=== PATIENT | male | born 1935 | race Caucasian/White ===

== ENCOUNTER → 2018-04-07 11:42 | Outpatient (CLI) | payer MEDICARE, SELFPAY | PROVIDERS: Family Provider Family Medicine; PCP Family Medicine; Visit Provider Urology | DX: C61 Malignant neoplasm of prostate (principal) | CPT/HCPCS: 36415; 84153 ==

== ENCOUNTER → 2018-04-09 10:28 | Outpatient (CLI) | payer MEDICARE, SELFPAY | PROVIDERS: Family Provider Family Medicine; PCP Family Medicine; Visit Provider Urology | DX: Z85.46 Personal history of malignant neoplasm of prostate (principal) | CPT/HCPCS: 78306 ==

== ENCOUNTER 2018-06-20 10:58 | Emergency (ER) | payer MEDICARE, SELFPAY ==
[2018-06-20 10:59] VITALS: BP 200/79; PULSE 105; RESP 17; TEMP 36.8; O2SAT 98; BMI 25.5
[2018-06-20 11:47] LABS: Bacteria 0 SEEN /hpf (None Seen); Mucous, Urine 0 SEEN /hpf (<or=2+); Squamous Epithelial Cells - UA 0 SEEN /hpf (0-5); White Blood Cells 0 SEEN /hpf (0-5)
[2018-06-20 11:52] LABS: Color, Urine Yellow (Yellow); Glucose, Dipstick Normal (Normal); Ketone-Dipstick Negative (Negative); Leukocyte Esterase-Dipstick Negative /ul (Negative); Nitrite-Dipstick Negative (Negative); Occult Blood-Urine 50 /ul (Negative); Protein-Dipstick 30 mg/dl (Negative); Urine Bilirubin Dipstick Negative (Negative); Urine Clarity Clear (Clear); Urine Urobilinogen Normal (Normal)
[2018-06-20 12:00] LABS: Red Blood Cells-Urine 0-5 SEEN /hpf (0-5)
--- NOTE | 2018-06-20 12:17 | ED.DCSUM_ITS ---
- ER Visit Summary Date of Service: 06/20/18 Chief Complaint: Urinary retention History of Present Illness: The patient is a 83 M with urinary retention. He has a history of prostate cancer. He feels quite a bit of suprapubic pain. I saw the patient after So was inserted by nurse and now he is asymptomatic and he feels much relieved so far he has had 900 mL's of clear urine out. He has no fever chills or any other current concerns. Physical Examination: Not appear in acute distress. Moist mucous membranes, no obvious facial deformity No C-spine tenderness supple neck. Regular rate and rhythm without any obvious murmurs Clear lungs bilaterally speaking in full sentences without any obvious respiratory distress Abdomen soft and nontender no guarding or rebound Normal external genitalia Moves all extremities without any difficulty or pain. Skin does not show any obvious rashes or lesions, no trauma. Alert oriented ?3 with no gross focal deficit Emergency Department Course and Treatment: Patient has an unremarkable urinalysis, he feels comfortable and no longer in pain. I will discharge him with a leg bag to follow-up with his urologist in the next 3-4 days. Discharge stable and improved condition Impression: Urinary retention This note was generated with [employer] dictation software. It may contain incorrect words, spelling, and punctuation that were not noted in review of the chart prior to signing ED Disposition - Plan for ED Patient: Disposition: Home or Assisted Living Chief Complaint: Complaint Instructions: ED Retention Urinary Male Referrals: Silvano Loyd MD [STAFF PHYSICIAN] - 3-5 Days
[2018-06-20 12:47] VITALS: BP 123/78; PULSE 108; RESP 14; O2SAT 95
== END 2018-06-20 12:49 | disposition home or self-care (01) ==
PROVIDERS: Emergency Provider Emergency Medicine; Family Provider Family Medicine; PCP Family Medicine
DX: R33.9 Retention of urine, unspecified (principal); R10.9 Unspecified abdominal pain; Z85.46 Personal history of malignant neoplasm of prostate
CPT/HCPCS: 51702; 81001; 99283

== ENCOUNTER 2018-07-17 09:55 | Day surgery (SDC) | payer MEDICARE, SELFPAY ==
[2018-07-10 14:17] VITALS: BP 147/83; PULSE 77; RESP 17; TEMP 37.2; O2SAT 97; BMI 24.9
--- NOTE | 2018-07-10 14:48 | SDCEKG_ITS ---
Test Reason : Blood Pressure : / mmHG Vent. Rate : 076 BPM Atrial Rate : 076 BPM P-R Int : 178 ms QRS Dur : 132 ms QT Int : 380 ms P-R-T Axes : 040 099 024 degrees QTc Int : 427 ms Normal sinus rhythm Right bundle branch block Abnormal ECG Confirmed by NISHI PEDROZA, JOANN ([id number]), senior editor ANTONIETA REDE ([id number]) on 07/13/2018 2:26:18 PM Referred By: Silvano Loyd Confirmed By:JOANN ALMODOVAR MD
[2018-07-10 16:34] LABS: Absolute Lymphocyte Count 1.97 X10^3/ul (0.83-4.51); Absolute Neutrophil Count 12.5 X10^3/uL (2.0-7.7); Basophil# 0.09 X10^3/uL; Basophil% 0.5 % (0-1); Eosinophil# 0.61 X10^3/uL; Eosinophils% 3.7 % (0-5); Hematocrit 48.5 % (40-54); Hemoglobin 13.3 g/dl (13.0-16.5); Lymphocyte # 1.97 X10^3/ul (4.0); Lymphocyte % 11.8 % (19-41); Mean Corp Hgb Conc 27.4 g/gl (32-36); Mean Corpuscular Hgb 18.8 pg (27.0-32.0); Mean Corpuscular Volume 68.4 fL (80-94); Mean Platelet Vol. 10.1 fl (6.2-12.0); Neutrophil # 12.45 X10^3/uL (2.7-7.7); Neutrophil % 74.8 % (47-70); Platelet Count 611 K/mm3 (150-450); RBC Distribution Width CV 21.2 % (11.6-14.6); RBC Distribution Width SD 50.4 fl (35.1-43.9); White Blood Count 16.7 K/mm3 (4.4-11.0)
[2018-07-10 17:02] LABS: POSITIVE COUNT NO; POSITIVE DIFFERENTIAL NO; POSITIVE MORPHOLOGY YES; Red Blood Count 7.09 M/mm3 (4.6-6.2)
[2018-07-10 17:05] LABS: Differential Indicated SCAN CRITERIA MET
[2018-07-10 17:06] LABS: Anisocytosis 2+; Hypochromasia 4+; Platelet Estimate MKD INC (ADEQ); Stomatocyte 1+
[2018-07-10 17:07] LABS: Target Cells RARE
[2018-07-14 10:48] LABS: Pathologist Review Reviewed
[2018-07-17] VITALS (11 sets, daily range): BP systolic 104–151; BP diastolic 52–83; PULSE 71–97; RESP 16–18; TEMP 36.1–36.9; O2SAT 93–97; BMI 24.9
--- NOTE | 2018-07-17 | IMM_PTH ---
PATIENT: ZULEIMA [place]CE [place] [facility] [id number] AGE/SX: 83/M ROOM: RE07/17/[address]: Dr. Silvano Loyd MD : 1935 BED: DIS: 07/18/2018 SPEC #: [id number] RECD: 07/21/18 13:37 STATUS: RENUKA REQ #: [id number] WILLARD: 07/17/18 00:[address]: Silvano Loyd DEPT: IMMUNOHISTOCHEMISTRY RECD BY: Melissa Breen ENTERED: 07/21/18 13:39 SP TYPE: IMMUNO OTHR DR: Dr. Valentino Barroso, DO Tissues: Prostate, NOS Procedures: CK14 (add) P53 (add) 34BE12 (add) P40 (add) CD44 (add) PSAP (add) CK7 (initial) PHYSICIAN & INSTITUTION [facility] [phone] SPECIMEN INFORMATION: Tissue Source: Prostate tissue Clinical Info: Obstruction, BPH, prostate cancer Specimen Number: [id number] #1 CPT code: 41266, 68870 x6 METHODOLOGY: Deparaffinized sections of prefer/formalin-fixed tissue or PAP/DQ stained slides are incubated with monoclonal/polyclonal antibodies/oligonucleotide probes. Localization is made via biotin free immunoperoxidase method. Appropriate controls are performed and reacted as expected. Results on target cell population are indicated in the following table: RESULTS: ANTIBODY / CLONE RESULT Block 1 PSAP (PASE/4LJ) positive CK7 (OV-TL12/30) negative CK14 (LL002) negative anti-CD44 (SP37) negative 34BE12 (34BE12) negative P40 (BC28) negative P53 (DO-7) positive 10% These tests were developed and their performance characteristics determined by [facility]. They may not have been cleared or approved by the U.S. Food and Drug Administration. The FDA has determined that such clearance or approval is not necessary. INTERPRETATION: Prostate tissue, TUR: Adenocarcinoma. AM:ginger 07/22/18 Comment: The carcinoma is consistent with prostatic origin.
--- NOTE | 2018-07-17 11:25 | PROS_PTH ---
PATIENT: ZULEIMA [place]CE [place] [facility] [id number] AGE/SX: 83/M ROOM: RE07/17/[address]: Dr. Silvano Loyd MD : 1935 BED: DIS: 07/18/2018 SPEC #: [id number] RECD: 07/17/18 15:10 STATUS: RENUKA REKimo #: [id number] WILLARD: 07/17/18 11:[address]: Silvano Loyd DEPT: SURGICAL PATHOLOGY RECD BY: Sharon Collado ENTERED: 07/20/18 09:31 SP TYPE: TURP OTHR DR: Dr. Valentino Barroso, DO Tissues: Prostate, NOS Procedures: Surgery Specimen Level IV HEADER OPERATION: Cysto, TUR, prostate, Olympus PRE-OP DIAGNOSIS: Obstruction, BPH with prostate cancer TISSUE SUBMITTED: Prostate tissue MICROSCOPIC DIAGNOSIS Prostate, transurethral resection: Adenocarcinoma, Cassidy grade 8 (4+4). AM:ginger 07/21/18 COMMENT Virtually every fragment cubmitted contains high-grade prostatic adenocrcinoma. Immunohistochemistry ([id number]) supports the above diagnosis. Clinical correlation is suggested. Case has been reviewed in consultation with Dr. Dyer who concurs with the above diagnosis. IDC:[email or web address] MICROSCOPIC DESCRIPTION Slides are reviewed. GROSS DESCRIPTION Received is one container labeled with the patient's name and designated prostate tissue. The specimen consists of multiple irregular fragments of pink-hazel, rubbery, soft tissue that in aggregate weigh 3.8 gm and measure in aggregate 3 x 3 x 1 cm. The entire specimen is submitted in three cassettes. / NANCI:ginger 07/20/18 TC:0 CPT: 43857
[2018-07-17] MEDS: Cefazolin 2 GM in 0.9% Normal Saline 100 ML IV (11:28)
--- NOTE | 2018-07-17 11:39 | DCINST_ITS ---
Discharge Diet: No Restrictions, Light diet - advance as tolerated Discharge Activity: Return to Normal Activity, May Not Drive - for 2 days., May not drive while taking narcotic pain medications. Additional Activity Instructions:: Please be aware that pain medications may cause nausea. You should typically eat light foods as you take your pain medication. Pain medication may cause constipation, if this is a problem for you, please discuss with your doctor. Call your doctor if your incision/area has: Continuous Slow Oozing, Sudden Increased Bleeding, Increased Pain/ Swelling, Increased Redness, Foul Smelling Discharge, Swelling at the incision site Suture Line Care: Avoid Pulling/Pushing, Avoid Pinching/Bending Instructions: Transurethral Resection of the Prostate (TURP): Home Recovery Allergies/Adverse Reactions: Allergies No Known Allergies Allergy (Verified 07/10/18 14:15) Medications to take at Discharge Lisinopril [Zestril] 40 mg PO DAILY 07/26/14 Tamsulosin HCl [Flomax] 1 tab PO QHS 10/11/15 Aspirin [Aspirin EC] 325 mg PO DAILY 03/26/17 Acetaminophen [Tylenol Extra Strength] 500 mg PO Q6H PRN PRN #20 tablet 07/17/18 Ciprofloxacin [Cipro] 500 mg PO BID #14 tablet 07/17/18 Ibuprofen [Motrin] 600 mg PO Q6H PRN PRN #20 tablet 07/17/18 The following prescriptions were given: Acetaminophen [Tylenol Extra Strength] 500 mg PO Q6H PRN PRN #20 tablet PRN Reason: Pain Ibuprofen [Motrin] 600 mg PO Q6H PRN PRN #20 tablet PRN Reason: Pain Ciprofloxacin [Cipro] 500 mg PO BID #14 tablet Primary Care Physician: Valentino Barroso DO [Primary Care Provider] - Test Results: Test results from this visit will be discussed in further detail at your follow- up appointment, if applicable. Please Follow Up With: Silvano Loyd MD When: in 2 weeks, please call to make an appointment. Proposed Discharge Date: 07/18/18
--- NOTE | 2018-07-17 11:58 | OP.PCM_ITS ---
Report of Operation Date of Procedure: 07/17/18 Pre-Operative Diagnosis: BPH with obstruction urinary retention and history of prostate cancer Post-Operative Diagnosis: Same Surgery/Procedure Performed:: Cystoscopy and transurethral resection of the prostate Description of Surgical Findings:: 83-year-old male with history of prostate cancer presented to the emergency with retention of urine, plan to proceed with resection of the prostate to the alleviate the retention, we talked about the risk of the surgery including the risk of anesthesia, risk of bleeding, scar tissue formation, incontinence. Patient was taken back to the operating room at the smooth induction of general anesthesia he is placed supine on the table the penis testicles are prepped and draped in usual sterile fashion, went to the bladder with a 26 [place] continuous flow resectoscope, is a 12 degree lens, on inspection he had a short length prostate minimal obstruction but it was obstructive prostate bladder was smoothed out no trabeculation no tumors or stones within the bladder I then switched over the large loop and resected the floor of the prostate right lobe of the prostate level of the prostate note apical tissue to resect and no roof had a nice open channel did a flow test get a good flow, cauterized the resection site really well until hemostasis was obtained and place a catheter on three-way irrigation and patient anesthetic is being reversed. Type of Anesthesia:: General Drains: 3 way wolf - Admit VTE Documentation VTE Present on Admission: No VTE Mechan Device Prophylaxis: SCD's
--- NOTE | 2018-07-17 14:03 | NURSING ---
continuous spo2 applied per policy for + stop score.
[2018-07-17] MEDS: 0.9% Normal Saline 1,000 ML 75 ML IV (14:23)
[2018-07-17] MEDS: Docusate Sodium 100 MG Capsule PO (22:02)
[2018-07-17] MEDS: Ibuprofen 600 MG Tablet PO (22:02)
[2018-07-17] MEDS: Ciprofloxacin 500 MG Tablet PO (22:02)
[2018-07-18 02:30] VITALS: BP 107/55; PULSE 65; RESP 16; TEMP 36.8; O2SAT 98
--- NOTE | 2018-07-18 02:49 | NURSING ---
2L O2 NASAL CANULA APPLIED TO PT D/T SPO2 OF 79%. PT DENIES SOB, PT APPEARS TO NOT BE IN DISTRESS. VITALS WNL
[2018-07-18] MEDS: 0.9% Normal Saline 1,000 ML 75 ML IV (03:16)
[2018-07-18 07:40] VITALS: O2SAT 96
[2018-07-18 08:22] VITALS: BP 116/63; PULSE 77; RESP 18; TEMP 36.6; O2SAT 94
[2018-07-18] MEDS: Docusate Sodium 100 MG Capsule PO (08:25)
[2018-07-18] MEDS: Pantoprazole Sodium 40 MG Tablet PO (08:25)
[2018-07-18] MEDS: Ciprofloxacin 500 MG Tablet PO (09:39)
[2018-07-18] MEDS: oxyCODONE 5 MG Tablet PO (10:46)
[2018-07-18] MEDS: Ibuprofen 600 MG Tablet PO (10:47)
--- NOTE | 2018-07-18 12:05 | NURSING ---
Paged Dr. Loyd about plan for pt. Gave orders to remove wolf and if pt can void a good amount on own, he can then be discharged home. He will not be coming in to see pt unless there are complications. Went in to discuss plan with pt. pt c/o of burning and lots of pain/pressure. Irrigated wolf with 30ml sterile water. Numerous clots removed and bladder emptied 650ml clear yellow urine immediately. Dr. Loyd paged and notified of findings. no further clots noted when irrigated the second and third time and no blood noted in urine. Dr. Loyd said to remove wolf and if pt can void on own he can be discharged home. If not, call him for further orders.
[2018-07-18 14:24] VITALS: BP 135/78; PULSE 76; RESP 18; TEMP 36.6; O2SAT 97
== END 2018-07-18 14:35 | disposition home or self-care (01) ==
LOC: SDC 09:56 → AC 09:57 → MS2 07-20 07:40
PROVIDERS: Anesthesiology; Family Provider Family Medicine; PCP Family Medicine; Referring Provider Urology; Visit Provider Urology
PROC: (CPT 52630; principal; 2018-07-17 11:15)
DX: C61 Malignant neoplasm of prostate (principal); N40.1 Benign prostatic hyperplasia with lower urinary tract symptoms; R33.9 Retention of urine, unspecified; D45 Polycythemia vera; I10 Essential (primary) hypertension; Z85.46 Personal history of malignant neoplasm of prostate
CPT/HCPCS: 52630; 85025; 88305; 88341; 88342; 93005; 94762; J7030; J7120; J2405

== ENCOUNTER → 2019-10-07 | Outpatient (CLI) | payer MEDICARE, SELFPAY ==
[2019-09-07 14:39] VITALS: BMI 27.3
[2019-10-07 12:32] LABS: Absolute Lymphocyte Count 2.53 X10^3/uL (0.83-4.51); Absolute Neutrophil Count 13.4 X10^3/uL (2.0-7.7); Basophil# 0.18 X10^3/uL; Eosinophil# 0.42 X10^3/uL; Eosinophils% 2.4 % (0-5); Hemoglobin 14.7 g/dL (13.0-16.5); Lymphocyte # 2.53 X10^3/ul (4.0); Lymphocyte % 14.2 % (19-41); Mean Corp Hgb Conc 26.4 g/dL (32-36); Mean Corpuscular Hgb 20.2 pg (27.0-32.0); Mean Corpuscular Volume 76.5 fL (80-94); Mean Platelet Vol. 9.5 fl (6.2-12.0); Monocyte# 1.16 X10^3/uL; Monocyte% 6.5 % (0-10); NRBC Flagged by Analyzer 0 % (0-5); Neutrophil # 13.35 X10^3/uL (2.7-7.7); Neutrophil % 75.2 % (47-70); POSITIVE MORPHOLOGY YES; Platelet Count 428 K/mm3 (150-450); RBC Distribution Width SD 64.6 fl (35.1-43.9); Red Blood Count 7.28 M/mm3 (4.6-6.2); White Blood Count 17.8 K/mm3 (4.4-11.0)
[2019-10-07 12:40] LABS: Hematocrit 55.7 % (40-54)
[2019-10-07 12:41] LABS: Differential Indicated SCAN CRITERIA MET
[2019-10-07 12:55] LABS: Anisocytosis 2+; Differential Comment SCANNED; Hypochromasia 1+; Macrocytosis 1+; Microcytosis 1+
[2019-10-07 13:06] LABS: ALB/GLOB Ratio 0.9 RATIO (0.9-2.4); AST(SGOT) 21 U/L (15-37); Alanine Aminotransfer ALT/SGPT 16 U/L (16-61); Albumin, Serum 3.6 g/dL (3.2-5.0); Alkaline Phosphatase 97 U/L (45-117); Anion Gap 4 (5-15); BUN 21 mg/dL (7-18); BUN/Creat Ratio 16.9 RATIO (10-20); Chloride 108 mmol/L (98-107); Creatinine, Serum 1.24 mg/dL (0.70-1.30); EST Glomerular Filtration Rate 59 mL/min (>60); Est Glom Filt Rate - Afr Amer 71 mL/min (>60); Globulin 3.8 g/dL (2.2-4.2); Glucose 83 mg/dL (74-106); LDH 254 U/L (87-241); Potassium 4.4 mmol/L (3.5-5.1); Protein, Total 7.4 g/dL (6.4-8.2); Sodium Level 140 mmol/L (136-145)
[2019-10-08 09:39] LABS: PSA,Total- Diagnostic 1.15 ng/mL (0.0-4.0)
== END | disposition home or self-care (01) ==
LOC: LAB 11:54
PROVIDERS: Internal Medicine Medical Oncology; PCP Family Medicine; Referring Provider Urology; Visit Provider Urology
DX: C61 Malignant neoplasm of prostate (principal); D45 Polycythemia vera
CPT/HCPCS: 36415; 80053; 83615; 84153; 85025; G0103

== ENCOUNTER → 2020-08-14 13:06 | Outpatient (CLI) | payer MEDICARE, SELFPAY ==
[2020-06-27 15:41] VITALS: BMI 24.3
[2020-08-14 15:10] LABS: PSA,Total- Diagnostic 3.14 ng/mL (0.0-4.0)
== END ==
PROVIDERS: PCP Family Medicine; Referring Provider Internal Medicine Medical Oncology; Visit Provider Internal Medicine Medical Oncology
DX: C61 Malignant neoplasm of prostate (principal)
CPT/HCPCS: 36415; 84153

== ENCOUNTER → 2020-11-20 13:46 | Outpatient (CLI) | payer MEDICARE, SELFPAY ==
[2020-10-16 14:37] VITALS: BMI 24.5
[2020-11-20 14:27] LABS: PSA,Total- Diagnostic 3.39 ng/mL (0.0-4.0)
== END ==
PROVIDERS: PCP Family Medicine; Referring Provider Urology; Visit Provider Urology
DX: C61 Malignant neoplasm of prostate (principal)
CPT/HCPCS: 36415; 84153

== ENCOUNTER → 2020-12-29 13:52 | Outpatient (CLI) | payer MEDICARE, SELFPAY ==
[2020-12-20 12:35] VITALS: BMI 24.1
--- NOTE | 2020-12-29 13:57 | ECHOD_ITS ---
Reason For Study: HTN Procedure This was a 2D Doppler, Color Flow transthoracic echocardiogram. Exam performed in department. Left Ventricle Normal LV size. Left ventricular systolic function is normal. The estimated ejection fraction is 65 %. No regional wall motion abnormalities noted. Right Ventricle Normal RV size. Normal systolic function. Atria Normal left atrium. Normal right atrium. Mitral Valve Mild focal mitral valve calcification. Tricuspid Valve Normal tricuspid valve. Mild tricuspid valve insufficiency. Aortic Valve Trisinus/trileaflet aortic valve. Mild focal aortic valve calcification. Mild (1+) aortic valve insufficiency. Pulmonic Valve Normal pulmonic valve. Great Vessels Normal aortic root. The pulmonary artery is normal size. Normal inferior vena cava. Pericardium/Pleural No pericardial effusion. MMode/2D Measurements & Calculations LVIDd: 3.3 cm IVSd: 1.2 cm Ao root diam: 2.6 cm LVIDs: 1.6 cm LVPWd: 0.90 cm RVDd: 3.8 cm FS: 50.9 % LAV(MOD-bp): 20.1 ml LVAd ap4: 24.0 cm2 SV(MOD-sp4): 45.4 ml LAV(MOD-bp) Indexed: 14.0 ml/m2 LVLd ap4: 7.7 cm LAV(MOD-sp2): 22.1 ml EDV(MOD-sp4): 61.5 ml LAV(MOD-sp4): 17.9 ml EDV(sp4-el): 63.7 ml LVAs ap4: 10.5 cm2 LVLs ap4: 5.9 cm ESV(MOD-sp4): 16.1 ml ESV(sp4-el): 15.8 ml EF(MOD-sp4): 73.8 % EF(sp4-el): 75.2 % SV(sp4-el): 47.9 ml LA A4 area: 8.9 cm2 LA dimension(2D): 2.9 cm RA A4 area: 8.1 cm2 Doppler Measurements & Calculations MV E max ion: 64.2 cm/sec Lat Peak E' Ion: 8.1 cm/sec Med Peak E' Ion: 5.8 cm/sec MV A max ion: 78.1 cm/sec E/E' lat: 8.0 E/E' med: 11.0 MV E/A: 0.82 Ao V2 max: 173.6 cm/sec AI max ion: 332.4 cm/sec LV V1 max: 148.3 cm/sec Ao max P.1 mmHg AI max P.2 mmHg LV V1 max P.8 mmHg Ao V2 mean: 135.5 cm/sec Ao mean P.8 mmHg AI dec slope: 190.8 cm/sec2 Ao V2 VTI: 35.8 cm AI P1/2t: 510.2 msec PA V2 max: 108.8 cm/sec TR max ion: 190.3 cm/sec TR max P.5 mmHg ECHO/Echo Complete Interpretation Summary Normal LV size. Left ventricular systolic function is normal. The estimated ejection fraction is 65 %. No regional wall motion abnormalities noted. Mild focal mitral valve calcification. Mild (1+) aortic valve insufficiency. Mild tricuspid valve insufficiency. Ordering Physician: Aayush Bernal Referring Physician: Valentino Barroso Performed By: Kaya Diego, RDCS, RVT
== END ==
PROVIDERS: PCP Family Medicine; Referring Provider Internal Medicine Cardiovascular Disease; Visit Provider Internal Medicine Cardiovascular Disease
DX: R94.31 Abnormal electrocardiogram [ECG] [EKG] (principal); I10 Essential (primary) hypertension
CPT/HCPCS: 93306

== ENCOUNTER → 2021-03-08 15:44 | Outpatient (CLI) | payer MEDICARE, SELFPAY ==
[2021-02-08 14:42] VITALS: BMI 24.1
[2021-03-08 16:43] LABS: PSA,Total- Diagnostic 3.98 ng/mL (0.0-4.0)
== END ==
PROVIDERS: PCP Family Medicine; Visit Provider Urology
DX: C61 Malignant neoplasm of prostate (principal)
CPT/HCPCS: 36415; 84153

== ENCOUNTER → 2021-05-01 10:54 | Outpatient (CLI) | payer MEDICARE, SELFPAY | PROVIDERS: PCP Family Medicine; Referring Provider Nurse Practitioner Family; Visit Provider Nurse Practitioner Family | DX: D64.9 Anemia, unspecified (principal) | CPT/HCPCS: 82274 ==

== ENCOUNTER → 2021-06-07 14:10 | Outpatient (CLI) | payer MEDICARE, SELFPAY ==
--- NOTE | 2021-06-07 14:25 | BD_ITS ---
STUDY: DUAL ENERGY X-RAY ABSORPTIOMETRY / DXA REASON FOR EXAM: Male, 86 years old. Fractures TECHNIQUE: Bone Mineral Density (BMD) measurements of lumbar spine and bilateral hips were obtained. COMPARISON: None. FINDINGS: Lumbar Spine (L1-L4): g/cm2 (1.045) / T-score (-0.4) / Z-score (0.9) Findings are suggestive of normal bone density with a low fracture risk. Left Femur Total: g/cm2 (0.871) / T-score (-1.1) / Z-score (0.2) Left Femoral Neck: g/cm2 (0.646) / T-score (-2.1) / Z-score (-0.4) Right Femur Total: g/cm2 (0.732) / T-score (-2.0) / Z-score (-0.7) Right Femoral Neck: g/cm2 (0.584) / T-score (-2.5) / Z-score (-0.8) BD/Dexa Bone Density Study IMPRESSION: The patient is considered osteoporotic as outlined below according to World Yfn Organization (WHO) criteria with a high fracture risk. Reference Information: The T-score is the number of standard deviations above or below the standard which is normal for young adults at their peak bone mineral density. The World Health Organization (WHO) interprets the T-scores as follows: Above -1 Normal bone density Between -1 and -2.5 Osteopenia Equal to / or below -2.5 Osteoporosis As a practical clinical guideline, osteopenia may be graded as follows: Mild -1 through -1.5 Moderate -1.6 through -2.0 Severe -2.1 through -2.4 The Z-score is the number of standard deviations above or below age-matched controls. A Z-score of less than -1.5 would be considered abnormal. References: 1. NIH Osteoporosis and Related Bone Diseases www osteo.org 2. International Society for Clinical Densitometry www iscd.org 3. National Osteoporosis Foundation www nof.org Electronically Signed: Jeremy Hamilton MD at 9:00 EDT , Service support ,
== END ==
PROVIDERS: PCP Family Medicine; Visit Provider Urology
DX: Z13.820 Encounter for screening for osteoporosis (principal); C61 Malignant neoplasm of prostate; Z79.890 Hormone replacement therapy; M81.0 Age-related osteoporosis without current pathological fracture
CPT/HCPCS: 77080

== ENCOUNTER → 2021-07-30 | Outpatient (CLI) | payer MEDICARE, SELFPAY | END | disposition home or self-care (01) | LOC: LABSPEC 16:44 | PROVIDERS: PCP Family Medicine; Visit Provider Family Medicine | DX: U07.1 COVID-19 (principal) | CPT/HCPCS: 87635; U0005; U0003 ==

== ENCOUNTER 2021-08-01 17:39 | Outpatient (CLI) | payer MEDICARE, SELFPAY ==
[2021-08-01 18:02] VITALS: BP 176/87; PULSE 73; RESP 16; TEMP 36.4; O2SAT 98; BMI 24.1
[2021-08-01] MEDS: 0.9% Saline Lock 10 ML Syringe IV (18:05)
[2021-08-01 18:45] VITALS: BP 131/82; PULSE 65; RESP 16; TEMP 36.7; O2SAT 97
[2021-08-01 19:37] VITALS: BP 170/89; PULSE 68; RESP 16; TEMP 36.6; O2SAT 99
== END 2021-08-01 19:37 | disposition home or self-care (01) ==
LOC: MS3OUT 17:40 → MS3 17:40
PROVIDERS: PCP Family Medicine; Referring Provider Nurse Practitioner Adult Health; Visit Provider Nurse Practitioner Adult Health
DX: Z23 Encounter for immunization (principal); U07.1 COVID-19
CPT/HCPCS: J7050; M0245; Q0245; A4216

== ENCOUNTER 2021-11-19 15:07 | Outpatient (CLI) | payer MEDICARE, SELFPAY ==
[2021-11-19 16:37] LABS: PSA,Total- Diagnostic 6.97 ng/mL (0.0-4.0)
== END 2021-11-19 23:59 | disposition home or self-care (01) ==
LOC: LAB 15:08
PROVIDERS: PCP Family Medicine; Referring Provider Urology; Visit Provider Urology
DX: R97.20 Elevated prostate specific antigen [PSA] (principal)
CPT/HCPCS: 36415; 84153

== ENCOUNTER → 2021-11-30 | Outpatient (CLI) | payer MEDICARE, SELFPAY ==
--- NOTE | 2021-11-30 08:54 | NM_ITS ---
CLINICAL: Male, 86 years old. MALIGNANT NEOPLASM OF PROSTATE WHOLE BODY NUCLEAR BONE SCAN TECHNIQUE: Following the IV administration of 24.5 mCi of Tc MDP, whole body bone imaging was performed with a gamma camera following a three hour delay. COMPARISON STUDIES : NM - 04/09/2018 CR - Not available for review at this time. CT - Not available for review at this time. MR - Not available for review at this time. US - Not available for review at this time. FINDINGS: Mild degenerative activity of the lower cervical spine, bilateral shoulders and left knee. There is otherwise normal concentration of radiopharmaceutical throughout the axial and appendicular skeletal system without either a focal decrease or increase in uptake. Injection artifact of the right antecubital fossa. NM/Bone Scan Whole Body IMPRESSION: No osseous metastasis. Stable. Electronically Signed: Johnny Worley MD ([place]) at 14:25 EDT ,
== END | disposition home or self-care (01) ==
LOC: NM 08:52
PROVIDERS: PCP Family Medicine; Referring Provider Urology; Visit Provider Urology
DX: C61 Malignant neoplasm of prostate (principal)
CPT/HCPCS: 78306; A9503

== ENCOUNTER → 2021-12-05 | Outpatient (CLI) | payer MEDICARE, SELFPAY ==
--- NOTE | 2021-12-05 13:28 | CT_ITS ---
STUDY: CT ABDOMEN AND PELVIS WITH AND WITHOUT CONTRAST REASON FOR EXAM: Male, 86 years old. PROSTATE CA. Prior TURP. RADIATION DOSAGE (If Supplied By Facility): CTDIvol = ( 13.91 ) mGy, DLP = ( 1890.30 ) mGycm TECHNIQUE: Transaxial images were obtained from the dome of the diaphragm to the symphysis pubis without oral contrast. IV 100mL Isovue-300 was administered. Sagittal and coronal images were reconstructed. Individualized dose optimization techniques were used for this CT. COMPARISON: Comparison is made with prior examination of 09/26/2014. FINDINGS: Mild degree of increased linear markings at the lung bases suggestive of a scarring. Coronary artery calcification. There is a 1.9 cm x 1.9 cm cyst in the medial aspect of the right lobe of the liver. This has decreased in size as compared to prior study. Normal gallbladder and extrahepatic biliary system. Normal spleen. Normal pancreas. Normal bilateral adrenal glands. There is a 1.2 cm cyst in the mid medial aspect of the right kidney. Multiple left renal cyst. The largest cyst measures 4.3 cm x 4 cm. This is in the lower pole calyx of the left kidney. There is also evidence of a 3.9 cm x 3.9 sinus cyst in the upper medial portion of the left kidney. Normal visualized stomach. Normal small intestine. There are multiple colonic diverticula consistent with diverticulosis. The appendix is visualized and appears normal. There is scattered atherosclerotic calcification of the abdominal aorta, without a demonstrated aneurysm. Normal inferior vena cava. Normal retroperitoneum. Diffuse thickening of the urinary bladder wall although the bladder is not completely distended. Trabeculation is seen at the base of the bladder posteriorly. The prostate measures 3.3 cm x 3.8 cm. This causes indentation at the bladder base. There is a right-sided inguinal hernia containing adipose tissue. There are degenerative changes of the visualized lumbar spine. CT/CT Abd/Pelvis W/WO Contrast IMPRESSION: Diffuse thickening of the urinary bladder wall with the findings suggestive of trabeculation at the bladder base. Prostatic enlargement with indentation at the bladder base. Bilateral renal cysts more prominent in the left kidney. Electronically Signed: Roque Li MD at 14:41 EDT ,
== END | disposition home or self-care (01) ==
LOC: CT 13:21
PROVIDERS: PCP Family Medicine; Referring Provider Urology; Visit Provider Urology
DX: C61 Malignant neoplasm of prostate (principal)
CPT/HCPCS: 74178; Q9967

== ENCOUNTER → 2022-02-19 | Outpatient (CLI) | payer MEDICARE, SELFPAY ==
[2022-02-19 16:51] LABS: PSA,Total- Diagnostic 8.22 ng/mL (0.0-4.0)
== END | disposition home or self-care (01) ==
LOC: LAB 14:36
PROVIDERS: PCP Family Medicine; Visit Provider Urology
DX: C61 Malignant neoplasm of prostate (principal)
CPT/HCPCS: 36415; 84153

== ENCOUNTER 2022-05-04 04:06 | Emergency (ER) | payer MEDICARE, SELFPAY ==
[2022-05-04 04:09] VITALS: BP 194/107; PULSE 116; RESP 13; TEMP 36.7; O2SAT 97; BMI 24.3
--- NOTE | 2022-05-04 04:33 | EKG12_ITS ---
Test Reason : DYSRHYTHMIA Blood Pressure : / mmHG Vent. Rate : 102 BPM Atrial Rate : 102 BPM P-R Int : 192 ms QRS Dur : 130 ms QT Int : 370 ms P-R-T Axes : 053 120 033 degrees QTc Int : 482 ms Sinus tachycardia Right bundle branch block Abnormal ECG Confirmed by NISHI PEDROZA, JOANN ([id number]), content editor CRISTIAN KATZ ([id number]) on 05/07/2022 12:35:26 PM Referred By: JOSE Confirmed By:JOANN ALMODOVAR MD
[2022-05-04 04:40] VITALS: BP 182/106; PULSE 99; RESP 13; O2SAT 95
[2022-05-04 04:41] LABS: Absolute Lymphocyte Count 2.02 X10^3/uL (0.83-4.51); Absolute Neutrophil Count 3.8 X10^3/uL (2.0-7.7); Basophil# 0.13 X10^3/uL; Basophil% 1.8 % (0-1); Eosinophil# 0.07 X10^3/uL; Hemoglobin 19.5 g/dL (13.0-16.5); Lymphocyte # 2.02 X10^3/ul (0.83-4.51); Lymphocyte % 28.1 % (19-41); Mean Corp Hgb Conc 33.8 g/dL (32-36); Mean Corpuscular Hgb 41.8 pg (27.0-32.0); Mean Corpuscular Volume 123.6 fL (80-94); Monocyte# 1.03 X10^3/uL; Monocyte% 14.3 % (0-10); NRBC Flagged by Analyzer 0 % (0-5); Neutrophil # 3.84 X10^3/uL (2.7-7.7); Neutrophil % 53.5 % (47-70); POSITIVE MORPHOLOGY YES; Platelet Count 281 K/mm3 (150-450); RBC Distribution Width SD 66.1 fl (35.1-43.9); Red Blood Count 4.67 M/mm3 (4.6-6.2); White Blood Count 7.2 K/mm3 (4.4-11.0)
[2022-05-04 04:46] LABS: Hematocrit 57.7 % (40-54)
[2022-05-04 04:47] LABS: Differential Indicated SCAN CRITERIA MET
[2022-05-04] MEDS: Labetalol (Prefilled) 20 MG/4 ML IV (04:51)
[2022-05-04] MEDS: cloNIDine HCl 0.1 MG Tablet PO (04:51)
[2022-05-04 04:58] LABS: Anion Gap 6 (5-15); BUN 28 mg/dL (7-18); BUN/Creat Ratio 19.9 RATIO (10-20); Calcium,Total 9.2 mg/dL (8.5-10.1); Chloride 103 mmol/L (98-107); Creatinine, Serum 1.41 mg/dL (0.70-1.30); EST Glomerular Filtration Rate 51 mL/min (>60); Est Glom Filt Rate - Afr Amer 61 mL/min (>60); Estimated Creatinine Clearance 41.28 ml/min; Glucose 161 mg/dL (74-106); Magnesium 2.5 mg/dL (1.6-2.6); Potassium 4.1 mmol/L (3.5-5.1); Sodium Level 139 mmol/L (136-145); Troponin-I HS 6 pg/mL (3.0-78.0)
[2022-05-04 05:00] VITALS: BP 156/87; PULSE 82; RESP 14; O2SAT 94
[2022-05-04 05:15] LABS: Anisocytosis 2+; Differential Comment SCANNED; Macrocytosis 2+
--- NOTE | 2022-05-04 06:05 | EX.ED.DYSGE1 ---
HPI History of Present Illness Chief Complaint: Palpitations Narrative Narrative: Patient is an 86-year-old male with past medical history of polycythemia vera hypertension and prostate cancer. He states he was recently started on a new medication and is only had it now for 2 to 3 days. He states he thought he was tolerating it well but awoke this morning with feelings of his heart racing and his blood pressure elevated. He states that the blood pressure was above 200. He states there is no headache change in vision chest pain or shortness of breath or abdominal pain associate with this but he was concerned about having a stroke because of the high value and therefore comes to the hospital for evaluation. Patient denies any excessive stimulant use or illicit drug use and states only new medication is the Jakafi that he has been on for the past 2 to 3 days [facility] Medical History Anemia Bladder outlet obstruction Elevated serum creatinine Essential (primary) hypertension Fall GERD (gastroesophageal reflux disease) Hearing deficit Leg cramps Liver cyst Liver mass Prostate cancer Right bundle branch block (RBBB) Home Medications aspirin 325 mg tablet,delayed release 325 mg PO DAILY BLOOD THINNER 03/26/17 [History Last Taken 07/10/18] amlodipine 5 mg tablet 10 mg PO DAILY #90 tabs 12/20/20 [Rx Last Taken Unknown] lisinopril 40 mg tablet 40 mg PO DAILY BP 12/20/20 [History Last Taken Unknown] Handicap Placard #1 ea 12/06/21 [Rx Last Taken Unknown] hydroxyurea 500 mg capsule (Hydrea) 1,000 mg PO DAILY #180 caps 03/06/22 [Rx Last Taken Unknown] ruxolitinib 10 mg tablet (Jakafi) 10 mg PO BID 05/04/22 [History Last Taken Unknown] Allergy/AdvReac Type Severity Reaction Status Date / Time No Known Allergies Allergy Verified 05/04/22 04:08 Family History Mother Heart disease Surgical History H/O transurethral resection of prostate H/O vasectomy Social History Smoking Status: Former smoker second hand exposure: No alcohol intake: never substance use type: does not use caffeine: No beverley/pentecostalism: [employer] seatbelt use: always do you feel safe at home: Yes ROS ROS ED Constitutional Constitutional ED: Denies chills or fever(s) ENT ENT ED: Denies sore throat Cardiovascular Cardiovascular: Reports palpitations and racing heartbeat; Denies chest pain Respiratory/Chest Respiratory/Chest: Denies cough or dyspnea Gastrointestinal Gastrointestinal: Denies abdominal pain, diarrhea, nausea or vomiting Genitourinary Genitourinary ED: Denies dysuria Musculoskeletal Musculoskeletal: Denies myalgias Integumentary Denies rash Neurologic Neurologic: Denies headache(s) Hematologic/Lymphatic Hematologic/Lymphatic: Denies easy bleeding or easy bruising EXAM Physical Exam Const Vital Signs: 05/04/22 04:09 05/04/22 04:13 05/04/22 04:40 Temperature 98.1 F Temperature Source Temporal Pulse Rate 116 H 99 Respiratory Rate 13 13 Respiratory Effort Normal Blood Pressure 194/107 H 182/106 H Blood Pressure Mean 136 131 Pulse Ox 97 95 Oxygen Delivery Method Room Air Room Air 05/04/22 05:00 Temperature Temperature Source Pulse Rate 82 Respiratory Rate 14 Respiratory Effort Blood Pressure 156/87 H Blood Pressure Mean 110 Pulse Ox 94 Oxygen Delivery Method Room Air Positive well nourished and well developed General Appearance ED: well developed HEENT Reports moist mucous membranes Eyes PERRL and EOMs intact bilaterally Neck supple Resp normal respiratory effort and clear to auscultation bilaterally Cardio regular rhythm Rate: tachycardic and other Other Details: Slightly tachycardic rate with regular rhythm. Radial pulses are plus 2 out of 4 bilaterally are equal and symmetric GI normal to inspection, nondistended, normoactive bowel sounds, non-tender, non-distended and no masses GI Narrative: No voluntary guarding or rigidity no pulsatile mass Auscultation: normoactive bowel sounds Palpation: soft Extremity normal to inspection Extremity Narrative: No asymmetric edema no pitting edema negative Homans' sign bilaterally Neuro oriented x3, CN's II-XII intact bilaterally and no sensory deficits noted Sensorium / Orientation: alert Psych mental status grossly normal Skin no rashes or lesions noted MDM MDM MDM Narrative Medical decision making narrative: Patient presented to the ER hypertensive and just slightly tachycardic. He reported palpitations at home but has no history of a cardiac dysrhythmia and he is in sinus tachycardia in the ER. He does have a history of hypertension but states that he is been taking his medications as directed. He denies headache change in vision or abdominal pain and does not have physical exam findings for endorgan damage but because of the elevated blood pressure a basic work-up will be obtained. Labs showed elevation to his hemoglobin consistent with polycythemia vera and slight elevation to kidney function but this is near his baseline. Otherwise his troponin is normal. He was given labetalol and clonidine and the heart rate reduced to approximately 80 and his blood pressure improved to approximately 125/75. On reevaluation he is resting comfortably his neuro exam remains normal and he states he feels much better at this time. As we have not captured a cardiac dysrhythmia and he has no signs of endorgan damage I do not feel there is need for further work-up in the ER and patient is otherwise safe for discharge Lab Data Attestation: I reviewed the patient's lab results. Labs: Laboratory Results - last 24 hr 05/04/22 05/04/22 04:15 04:15 WBC 7.2 RBC 4.67 Hgb 19.5 H* Hct 57.7 H MCV 123.6 H MCH 41.8 H MCHC 33.8 RDW Std Deviation 66.1 H RDW Coeff of Ilan 14.0 Plt Count 281 MPV 10.0 Immature Gran % (Auto) 1.300 H Neut % (Auto) 53.5 Lymph % (Auto) 28.1 [place] % (Auto) 14.3 H Eos % (Auto) 1.0 Baso % (Auto) 1.8 H Absolute Neuts (auto) 3.8 Absolute Lymphs (auto) 2.02 Nucleated RBC % 0 Differential Comment SCANNED Diff Path Review May foll Anisocytosis 2+ Macrocytosis 2+ Sodium 139 Potassium 4.1 Chloride 103 Carbon Dioxide 30.0 Anion Gap 6 BUN 28 H Creatinine 1.41 H Estim Creat Clear Calc 41.28 Est GFR (MDRD) Af Amer 61 Est GFR (MDRD) Non-Af 51 L BUN/Creatinine Ratio 19.9 Glucose 161 H Calcium 9.2 Magnesium 2.5 Troponin I High Sens 6 Discharge Plan Triage Chief Complaint: Palpitations ED Provider: Kenji Jamison Dx/Rx/DC Orders Clinical Impression: Accelerated hypertension, Heart palpitations, Polycythemia vera Instructions: ED Hypertension, Established, ED Palpitations Prescriptions: No Action lisinopril 40 mg tablet 40 mg PO DAILY Label Comments: blood pressure amlodipine 5 mg tablet 10 mg PO DAILY Qty: 90 3RF (DME) Handicap Placard See Rx Instructions .Route .MEDSUPPLY Qty: 1 0RF Rx Instructions: Expires 12/06/22 hydroxyurea [Hydrea] 500 mg capsule 1,000 mg PO DAILY Qty: 180 1RF aspirin 325 MG tablet,delayed release (DR/EC) 325 mg PO DAILY Label Comments: WAS TOLD TO STOP 7 DAYS PRE OP Jakafi 10 mg Tablet 10 mg PO BID Primary Care Provider: Valentino Barroso Referrals: Valentino Barroso DO [Primary Care Provider] - Activity Restrictions/Additional Instructions: Please continue your meds as directed by your doctor and return to the ER should you have any further concerns Disposition Disposition: Home, Self Care
[2022-05-04 06:17] VITALS: BP 132/73; PULSE 77; RESP 18; TEMP 36.6; O2SAT 96
[2022-05-06 13:34] LABS: Pathologist Review Reviewed
== END 2022-05-04 06:27 | disposition home or self-care (01) ==
PROVIDERS: Emergency Provider Emergency Medicine; PCP Family Medicine; Visit Provider Emergency Medicine
DX: R00.2 Palpitations (principal); D45 Polycythemia vera; I10 Essential (primary) hypertension; Z87.891 Personal history of nicotine dependence; Z79.82 Long term (current) use of aspirin; Z79.899 Other long term (current) drug therapy
CPT/HCPCS: 80048; 83735; 84484; 85025; 93005; 96374; 99284

== ENCOUNTER → 2022-05-09 | Outpatient (CLI) | payer MEDICARE, SELFPAY ==
[2022-05-09 13:04] LABS: Cholesterol 241 mg/dL (200); High Density Lipoprotein 43 mg/dL; Triglycerides 167 mg/dL; Very Low Density Lipoprotein 33 mg/dL (5-40)
== END | disposition home or self-care (01) ==
LOC: BFHLAB 08:37
PROVIDERS: PCP Family Medicine; Visit Provider Family Medicine
DX: I10 Essential (primary) hypertension (principal)
CPT/HCPCS: 36415; 80061

== ENCOUNTER → 2022-05-23 | Outpatient (CLI) | payer MEDICARE, SELFPAY ==
[2022-05-23 16:26] LABS: Absolute Lymphocyte Count 1.89 X10^3/uL (0.83-4.51); Absolute Neutrophil Count 6.9 X10^3/uL (2.0-7.7); Basophil# 0.12 X10^3/uL; Basophil% 1.1 % (0-1); Eosinophil# 0.18 X10^3/uL; Eosinophils% 1.7 % (0-5); Hematocrit 51.9 % (40-54); Hemoglobin 17.3 g/dL (13.0-16.5); Lymphocyte # 1.89 X10^3/ul (0.83-4.51); Lymphocyte % 17.8 % (19-41); Mean Corp Hgb Conc 33.3 g/dL (32-36); Mean Corpuscular Hgb 39.8 pg (27.0-32.0); Mean Corpuscular Volume 119.3 fL (80-94); Mean Platelet Vol. 10.8 fl (6.2-12.0); Monocyte# 1.48 X10^3/uL; NRBC Flagged by Analyzer 0 % (0-5); Neutrophil # 6.88 X10^3/uL (2.7-7.7); Neutrophil % 64.9 % (47-70); Platelet Count 454 K/mm3 (150-450); RBC Distribution Width CV 12.9 % (11.6-14.6); RBC Distribution Width SD 58.1 fl (35.1-43.9); Red Blood Count 4.35 M/mm3 (4.6-6.2); White Blood Count 10.6 K/mm3 (4.4-11.0)
[2022-05-23 17:10] LABS: ALB/GLOB Ratio 1.1 RATIO (0.9-2.4); AST(SGOT) 31 U/L (15-37); Alanine Aminotransfer ALT/SGPT 21 U/L (16-61); Albumin, Serum 3.9 g/dL (3.2-5.0); Alkaline Phosphatase 100 U/L (45-117); Anion Gap 5 (5-15); BUN 25 mg/dL (7-18); BUN/Creat Ratio 20.8 RATIO (10-20); Calcium,Total 9.3 mg/dL (8.5-10.1); Chloride 106 mmol/L (98-107); EST Glomerular Filtration Rate 61 mL/min (>60); Est Glom Filt Rate - Afr Amer 74 mL/min (>60); Globulin 3.6 g/dL (2.2-4.2); Glucose 83 mg/dL (74-106); LDH 440 U/L (87-241); Potassium 4.6 mmol/L (3.5-5.1); Protein, Total 7.5 g/dL (6.4-8.2); Sodium Level 141 mmol/L (136-145)
== END | disposition home or self-care (01) ==
LOC: LAB 15:07
PROVIDERS: Internal Medicine Medical Oncology; PCP Family Medicine; Visit Provider Urology
DX: C61 Malignant neoplasm of prostate (principal)
CPT/HCPCS: 36415; 80053; 83615; 84153; 85025

== ENCOUNTER 2022-07-17 18:03 | Emergency (ER) | payer MEDICARE, SELFPAY ==
[2022-07-17 18:05] VITALS: BP 176/90; PULSE 94; RESP 16; TEMP 36.2; O2SAT 96; BMI 22.9
--- NOTE | 2022-07-17 18:20 | EKG12_ITS ---
Test Reason : PALPS Blood Pressure : / mmHG Vent. Rate : 082 BPM Atrial Rate : 082 BPM P-R Int : 192 ms QRS Dur : 130 ms QT Int : 380 ms P-R-T Axes : 048 104 040 degrees QTc Int : 443 ms Normal sinus rhythm Right bundle branch block Abnormal ECG Confirmed by EVERT PEDROZA, IMGUEL ([id number]), online editor CRISTIAN KATZ ([id number]) on 07/19/2022 10:45:12 AM Referred By: TRACEY Confirmed By:DEMIAN LOYD MD
--- NOTE | 2022-07-17 18:22 | EX.ED.DYSGE1 ---
HPI History of Present Illness Chief Complaint: Palpitations Informant: patient Onset/Context/Timing Onset: Today Narrative Narrative: Patient presents secondary to palpitations. He states he went to sit in a chair tonight and had sudden onset of his heart racing. He denies shortness of breath, lightheadedness, chest pain. He states his symptoms seem to be improved now. He had another similar episode in May 04 when he presented to the emergency room. Nothing was found during his work-up. He was told it was likely anxiety. [facility] Medical History Anemia Bladder outlet obstruction Elevated serum creatinine Essential (primary) hypertension Fall GERD (gastroesophageal reflux disease) Hearing deficit Leg cramps Liver cyst Liver mass Prostate cancer Right bundle branch block (RBBB) Home Medications aspirin 325 mg tablet,delayed release 325 mg PO DAILY BLOOD THINNER 03/26/17 [History Last Taken 07/10/18] amlodipine 5 mg tablet 10 mg PO DAILY #90 tabs 12/20/20 [Rx Last Taken Unknown] lisinopril 40 mg tablet 40 mg PO DAILY BP 12/20/20 [History Last Taken Unknown] Handicap Placard #1 ea 12/06/21 [Rx Last Taken Unknown] ruxolitinib 10 mg tablet (Jakafi) 10 mg PO BID 05/04/22 [History Last Taken Unknown] Allergy/AdvReac Type Severity Reaction Status Date / Time No Known Allergies Allergy Verified 07/17/22 18:08 Family History Mother Heart disease Surgical History H/O transurethral resection of prostate H/O vasectomy Social History Smoking Status: Former smoker second hand exposure: No alcohol intake: never substance use type: does not use caffeine: No beverley/muslim: [employer] seatbelt use: always do you feel safe at home: Yes ROS ROS ED Constitutional Constitutional ED: Denies chills or fever(s) Eyes Eyes: Denies change in vision or discharge from eye(s) ENT ENT ED: Denies discharge from eye(s), rhinorrhea or sore throat Cardiovascular Cardiovascular: Reports palpitations and racing heartbeat; Denies chest pain Respiratory/Chest Respiratory/Chest: Denies cough or dyspnea Gastrointestinal Gastrointestinal: Denies abdominal pain, diarrhea, nausea or vomiting Genitourinary Genitourinary ED: Denies difficulty urinating or dysuria Musculoskeletal Musculoskeletal: Denies back pain or extremity pain Integumentary Denies Abrasions or rash Neurologic Neurologic: Denies headache(s) or weakness Psychiatric Psychiatric: Denies anxiety or depression Allergic/Immunologic Allergic/Immunologic ED: Denies lip swelling or urticaria EXAM Physical Exam Const Vital Signs: 07/17/22 18:05 07/17/22 18:13 07/17/22 18:46 Temperature 97.2 F L Temperature Source Temporal Pulse Rate 94 73 Respiratory Rate 16 15 Respiratory Effort Normal Respiratory Pattern Normal Blood Pressure 176/90 H Blood Pressure Mean 118 Pulse Ox 96 99 Oxygen Delivery Method Room Air Room Air Positive well nourished and well developed General Appearance ED: well developed HEENT Reports normocephalic and head/scalp atraumatic Eyes PERRL and EOMs intact bilaterally Neck supple Chest Wall inspection of chest normal and palpation of chest normal Resp normal respiratory effort and clear to auscultation bilaterally Cardio regular rate and regular rhythm GI normal to inspection, nondistended, normoactive bowel sounds Palpation: soft Extremity normal to inspection Neuro oriented x3 and no sensory deficits noted Sensorium / Orientation: alert Motor Exam: strength 5/5 throughout Psych mental status grossly normal Skin no rashes or lesions noted MDM MDM MDM Narrative Medical decision making narrative: Patient placed on library monitor. EKG, chest x-ray, lab work obtained. Lab Data Attestation: I reviewed the patient's lab results. Labs: Laboratory Results - last 24 hr 07/17/22 07/17/22 18:19 18:19 WBC 9.1 RBC 3.86 L Hgb 14.2 Hct 42.7 MCV 110.6 H MCH 36.8 H MCHC 33.3 RDW Std Deviation 56.6 H RDW Coeff of Ilan 13.9 Plt Count 371 MPV 11.3 Immature Gran % (Auto) 1.100 H Neut % (Auto) 67.0 Lymph % (Auto) 14.7 L [place] % (Auto) 13.8 H Eos % (Auto) 2.3 Baso % (Auto) 1.1 H Absolute Neuts (auto) 6.1 Absolute Lymphs (auto) 1.34 Nucleated RBC % 0.5 Sodium 141 Potassium 4.1 Chloride 107 Carbon Dioxide 30.0 Anion Gap 4 L BUN 30 H Creatinine 1.43 H Estim Creat Clear Calc 40.63 Est GFR (MDRD) Af Amer 60 Est GFR (MDRD) Non-Af 50 L BUN/Creatinine Ratio 21.0 H Glucose 123 H Calcium 9.1 Total Bilirubin 0.60 Direct Bilirubin 0.13 AST 27 ALT 26 Alkaline Phosphatase 107 Lactate Dehydrogenase 484 H Troponin I High Sens 8 Total Protein 7.8 Albumin 4.0 Globulin 3.8 Radiography Chest X-Ray - ED: 1 View, Read by ED Physician, Normal, Heart, Lungs and Mediastinum Diagnostic Testing: Clinical Impression(s) from Imaging Studies Chest X-Ray 07/17/22 18:28 IMPRESSION: No focal infiltrate or edema. Electronically Signed: Raghav Toussaint MD at 19:17 EST , EKG Initial EKG: Attestation: I personally reviewed and interpreted this EKG as follows: Interpretation: Sinus Rhythm (Sinus 82 with right bundle branch block. No acute ischemia.) Treatment and Re-Evaluation Narrative: CBC reveals normal white count 9.1. Hemoglobin is 14.2 which is improved when compared to his prior values given his treatment for polycythemia vera. Chemistry studies reveal a normal potassium. His BUN and creatinine are slightly bumped consistent with mild dehydration. LFTs are normal. Troponin is 8. Patient is given a 500 cc IV fluid bolus. Test results are discussed with patient and daughter at bedside. He will continue his current medication regimen and return for any worsening symptoms or concerns. Given the patient is only had 2 episodes of these symptoms in the last 2 months, I do not think that a Holter monitor will be beneficial as the episodes are very brief and not very frequent. I did advise him that if he starts having more frequent episodes this may be an option. Return instructions are given. Discharge Plan Triage Chief Complaint: Palpitations ED Provider: Roxana Carrera Dx/Rx/DC Orders Clinical Impression: Palpitations Instructions: ED Palpitations Prescriptions: No Action lisinopril 40 mg tablet 40 mg PO DAILY Label Comments: blood pressure amlodipine 5 mg tablet 10 mg PO DAILY Qty: 90 3RF (DME) Handicap Placard See Rx Instructions .Route .MEDSUPPLY Qty: 1 0RF Rx Instructions: Expires 12/06/22 aspirin 325 MG tablet,delayed release (DR/EC) 325 mg PO DAILY Label Comments: WAS TOLD TO STOP 7 DAYS PRE OP Jakafi 10 mg Tablet 10 mg PO BID Primary Care Provider: Valentino Barroso Referrals: Abundio Mujica MD [Med Staff - Active Staff] - Keep Alise appointment Valentino Barroso DO [Primary Care Provider] - As Needed Disposition Disposition: Home, Self Care
--- NOTE | 2022-07-17 18:28 | RAD_ITS ---
STUDY: X-RAY CHEST REASON FOR EXAM: Male, 87 years old. Palpitations TECHNIQUE: Single AP portable view of the chest. COMPARISON: July 29, 2014 FINDINGS: There are monitoring devices. The lungs are clear and expanded. There is no demonstrated pleural abnormality. Normal size heart. Normal mediastinum and sukh. Normal visualized pulmonary arteries. Normal visualized aortic arch and descending thoracic aorta. There is demineralization of the osseous structures. Normal visualized ribs, clavicles, and shoulders. There is no demonstrated abnormality of the visualized soft tissue structures of the upper abdomen. RAD/Chest 1 View (Portable) IMPRESSION: No focal infiltrate or edema. Electronically Signed: Raghav Toussaint MD at 19:17 EST ,
[2022-07-17 18:29] LABS: Absolute Lymphocyte Count 1.34 X10^3/uL (0.83-4.51); Absolute Neutrophil Count 6.1 X10^3/uL (2.0-7.7); Basophil% 1.1 % (0-1); Eosinophil# 0.21 X10^3/uL; Eosinophils% 2.3 % (0-5); Hematocrit 42.7 % (40-54); Hemoglobin 14.2 g/dL (13.0-16.5); Lymphocyte # 1.34 X10^3/ul (0.83-4.51); Lymphocyte % 14.7 % (19-41); Mean Corp Hgb Conc 33.3 g/dL (32-36); Mean Corpuscular Hgb 36.8 pg (27.0-32.0); Mean Corpuscular Volume 110.6 fL (80-94); Mean Platelet Vol. 11.3 fl (6.2-12.0); Monocyte# 1.26 X10^3/uL; Monocyte% 13.8 % (0-10); NRBC Flagged by Analyzer 0.5 % (0-5); Neutrophil # 6.09 X10^3/uL (2.7-7.7); Platelet Count 371 K/mm3 (150-450); RBC Distribution Width CV 13.9 % (11.6-14.6); RBC Distribution Width SD 56.6 fl (35.1-43.9); Red Blood Count 3.86 M/mm3 (4.6-6.2); White Blood Count 9.1 K/mm3 (4.4-11.0)
[2022-07-17] MEDS: 0.9% Normal Saline 1,000 ML 150 ML IV (18:38)
[2022-07-17 18:46] VITALS: PULSE 73; RESP 15; O2SAT 99
[2022-07-17 18:49] LABS: AST(SGOT) 27 U/L (15-37); Alanine Aminotransfer ALT/SGPT 26 U/L (16-61); Alkaline Phosphatase 107 U/L (45-117); Anion Gap 4 (5-15); BUN 30 mg/dL (7-18); Bilirubin, Direct 0.13 mg/dL (0.00-0.30); Calcium,Total 9.1 mg/dL (8.5-10.1); Chloride 107 mmol/L (98-107); Creatinine, Serum 1.43 mg/dL (0.70-1.30); EST Glomerular Filtration Rate 50 mL/min (>60); Est Glom Filt Rate - Afr Amer 60 mL/min (>60); Estimated Creatinine Clearance 40.63 ml/min; Globulin 3.8 g/dL (2.2-4.2); Glucose 123 mg/dL (74-106); LDH 484 U/L (87-241); Potassium 4.1 mmol/L (3.5-5.1); Protein, Total 7.8 g/dL (6.4-8.2); Sodium Level 141 mmol/L (136-145); Troponin-I HS 8 pg/mL (3.0-78.0)
== END 2022-07-17 19:34 | disposition home or self-care (01) ==
PROVIDERS: Emergency Provider Emergency Medicine; PCP Family Medicine; Visit Provider Emergency Medicine
DX: R00.2 Palpitations (principal); Z87.891 Personal history of nicotine dependence
CPT/HCPCS: 71045; 80048; 80076; 83615; 84484; 85025; 93005; 96360; 99284; J7030; A4216

== ENCOUNTER → 2022-07-22 | Outpatient (CLI) | payer MEDICARE, SELFPAY ==
[2022-07-22 15:28] LABS: Absolute Lymphocyte Count 1.57 X10^3/uL (0.83-4.51); Absolute Neutrophil Count 5.4 X10^3/uL (2.0-7.7); Basophil# 0.09 X10^3/uL; Basophil% 1.1 % (0-1); Eosinophil# 0.19 X10^3/uL; Eosinophils% 2.3 % (0-5); Hematocrit 41.3 % (40-54); Hemoglobin 13.3 g/dL (13.0-16.5); Lymphocyte # 1.57 X10^3/ul (0.83-4.51); Lymphocyte % 18.8 % (19-41); Mean Corp Hgb Conc 32.2 g/dL (32-36); Mean Corpuscular Hgb 35.9 pg (27.0-32.0); Mean Corpuscular Volume 111.6 fL (80-94); Mean Platelet Vol. 11.4 fl (6.2-12.0); Monocyte# 1.02 X10^3/uL; Monocyte% 12.2 % (0-10); NRBC Flagged by Analyzer 0.2 % (0-5); Neutrophil # 5.37 X10^3/uL (2.7-7.7); Neutrophil % 64.4 % (47-70); Platelet Count 352 K/mm3 (150-450); RBC Distribution Width CV 13.7 % (11.6-14.6); RBC Distribution Width SD 56.5 fl (35.1-43.9); White Blood Count 8.3 K/mm3 (4.4-11.0)
[2022-07-22 15:50] LABS: ALB/GLOB Ratio 1.1 RATIO (0.9-2.4); AST(SGOT) 25 U/L (15-37); Alanine Aminotransfer ALT/SGPT 23 U/L (16-61); Alkaline Phosphatase 99 U/L (45-117); Anion Gap 4 (5-15); BUN 23 mg/dL (7-18); BUN/Creat Ratio 17.3 RATIO (10-20); Calcium,Total 8.8 mg/dL (8.5-10.1); Chloride 107 mmol/L (98-107); Creatinine, Serum 1.33 mg/dL (0.70-1.30); EST Glomerular Filtration Rate 54 mL/min (>60); Est Glom Filt Rate - Afr Amer 65 mL/min (>60); Globulin 3.7 g/dL (2.2-4.2); Glucose 101 mg/dL (74-106); LDH 458 U/L (87-241); Potassium 3.9 mmol/L (3.5-5.1); Protein, Total 7.7 g/dL (6.4-8.2); Sodium Level 139 mmol/L (136-145)
[2022-07-22 23:26] LABS: Xtra Tube EP Lab EXTRA TUBE
== END | disposition home or self-care (01) ==
LOC: PAVLAB 15:13
PROVIDERS: Internal Medicine Medical Oncology; PCP Family Medicine; Referring Provider Urology; Visit Provider Urology
DX: C61 Malignant neoplasm of prostate (principal); D45 Polycythemia vera
CPT/HCPCS: 36415; 80053; 83615; 84153; 85025

== ENCOUNTER → 2022-08-30 | Outpatient (CLI) | payer MEDICARE, SELFPAY | END | disposition home or self-care (01) | LOC: LABSPEC 15:24 | PROVIDERS: PCP Family Medicine; Visit Provider Nurse Practitioner Family | DX: D64.9 Anemia, unspecified (principal) | CPT/HCPCS: 82274 ==

== ENCOUNTER → 2022-09-02 | Outpatient (CLI) | payer MEDICARE, SELFPAY ==
--- NOTE | 2022-09-02 16:52 | CT_ITS ---
EXAM: CT ABDOMEN AND PELVIS WITH INTRAVENOUS CONTRAST CLINICAL INDICATION: MALIGNANT NEOPLASM OF PROSTATE TECHNIQUE: Helically acquired images were obtained of the abdomen and pelvis with intravenous contrast. This CT exam was performed using one or more of the following dose reduction techniques: automated exposure control, adjustment of the mA and/or kV according to patient size, and/or use of iterative reconstruction technique. This report was created using [employer] report generation technology. CONTRAST: IV 100mL [id number] COMPARISON: 12/05/2021 FINDINGS: LOWER THORAX: Unremarkable. Lung bases are clear. No cardiomegaly. No significant pericardial effusion. ABDOMEN: LIVER: There is a low-density lesion in the liver which may represent a cyst or hemangioma. GALLBLADDER AND BILE DUCTS: Unremarkable. No calcified gallstones. No gallbladder distention or wall edema. No intra- or extrahepatic biliary ductal dilation. PANCREAS: Unremarkable. No focal cystic or solid mass. SPLEEN: Unremarkable. Normal size without focal cystic or solid mass. ADRENALS: Unremarkable. No nodules. KIDNEYS AND URETERS: There are low-density lesions in the left kidney compatible with cysts. No follow-up imaging is necessary. No hydronephrosis. STOMACH AND BOWEL: There are sigmoid diverticulosis with no evidence of diverticulitis. No stomach or bowel distention. PELVIS: APPENDIX: No evidence of acute appendicitis. BLADDER: There is thickening of the wall the urinary bladder. REPRODUCTIVE: Unremarkable as visualized. No mass. ABDOMEN and PELVIS: INTRAPERITONEAL SPACE: Unremarkable. No ascites or other fluid collection. No free air. BONES/JOINTS: Unremarkable. No suspicious lytic or blastic abnormality. SOFT TISSUES: Unremarkable. No discrete abdominal or pelvic wall hernia. VASCULATURE: Unremarkable. Abdominal aorta is non-dilated. LYMPH NODES: Unremarkable. No enlarged lymph nodes. CT/Abdomen/Pelvis WITH Contrast IMPRESSION: Thickening of the wall the urinary bladder which may be due to incomplete distention or cystitis. No other acute abnormalities are identified. There has been no significant change from the reference examination. Electronically Signed: Constantin Gutierrez MD at 21:30 EST ,
== END | disposition home or self-care (01) ==
LOC: CT 16:51
PROVIDERS: PCP Family Medicine; Visit Provider Urology
DX: C61 Malignant neoplasm of prostate (principal)
CPT/HCPCS: 74177; Q9967; A4216

== ENCOUNTER → 2022-09-09 | Outpatient (CLI) | payer MEDICARE, SELFPAY ==
--- NOTE | 2022-09-09 08:27 | NM_ITS ---
CLINICAL: 87-year-old male with history of carcinoma of the prostate. WHOLE BODY 99m Tc MDP RADIONUCLIDE BONE SCINTIGRAPHY COMPARISON: Previous whole body bone scintigraphy study dated 11/30/2021 FINDINGS: Following the intravenous administration of 26.4 mCi of 99m Tc MDP, whole body bone images reveal: 1. Redefined increased radiopharmaceutical concentration is noted in the upper cervical spine posteriorly on the right, lower cervical spine posteriorly on the left, the fifth lumbar vertebra, the acromioclavicular compartments of both shoulders, medial tibial compartment of the left knee. 2. The remaining skeletal structures are scintigraphically unremarkable with normal-appearing renal images and urinary bladder activity identified. Enhanced uptake is noted in the bilateral mandible and maxilla consistent with periodontal disease and/or periostitis. NM/Bone Scan Whole Body IMPRESSION: 1. The increase in radiopharmaceutical defined in the cervical and lumbar spine, the bilateral shoulders, left knee is consistent with degenerative arthrosis. 2. There is no definitive scintigraphic evidence of diffuse axial skeletal metastatic disease. Overall compared to the previous whole body bone scintigraphy study dated 11/30/2021, there is minimal interval change. Electronically Signed: Brian Villasenor, at 19:38 EST ,
== END | disposition home or self-care (01) ==
LOC: NM 08:26
PROVIDERS: PCP Family Medicine; Visit Provider Urology
DX: C61 Malignant neoplasm of prostate (principal)
CPT/HCPCS: 78306; A9503

== ENCOUNTER → 2022-12-03 | Outpatient (CLI) | payer MEDICARE, SELFPAY ==
[2022-12-03 14:41] LABS: PSA,Total- Diagnostic 1.36 ng/mL (0.0-4.0)
== END | disposition home or self-care (01) ==
LOC: LAB 13:52
PROVIDERS: PCP Family Medicine; Referring Provider Registered Nurse; Visit Provider Registered Nurse
DX: C61 Malignant neoplasm of prostate (principal)
CPT/HCPCS: 36415; 84153

== ENCOUNTER → 2023-01-01 | Outpatient (CLI) | payer MEDICARE, SELFPAY ==
--- NOTE | 2023-01-01 12:46 | US_ITS ---
EXAM: US SOFT TISSUES HEAD AND NECK, THYROID CLINICAL INDICATION: ENLARGED THYROID TECHNIQUE: Greyscale and color doppler imaging was performed of the thyroid gland. COMPARISON: No relevant prior studies available. FINDINGS: LEFT THYROID LOBE: 4.0 x 1.6 x 1.3 cm. Homogeneous echotexture with normal vascularity. No thyroid nodules are present. RIGHT THYROID LOBE: 4.5 x 2.2 x 1.4 cm. Small isoechoic nodule measuring 7 x 5 x 7 mm. TI-RADS points: 3. ISTHMUS: 5 mm, with a hypoechoic nodule measuring 7 x 4 x 3 mm. TI-RADS points: 4. US/Thyroid IMPRESSION: 1. No significant thyroid enlargement. 2. There is a 7 mm hypoechoic nodule in the isthmus as described above. TI-RADS points: 4. TI-RADS category: TR4. This nodule is moderately suspicious but no FNA or follow-up is necessary given the small size of this nodule. Electronically Signed: Jonathan Rome MD at 1:34 EDT ,
== END | disposition home or self-care (01) ==
LOC: US 12:46
PROVIDERS: PCP Family Medicine; Referring Provider Internal Medicine Medical Oncology; Visit Provider Internal Medicine Medical Oncology
DX: E04.9 Nontoxic goiter, unspecified (principal); D45 Polycythemia vera
CPT/HCPCS: 76536

== ENCOUNTER 2024-03-05 12:02 | Emergency (ER) | payer MEDICARE, SELFPAY ==
[2024-03-05 12:04] VITALS: BP 162/67; PULSE 74; RESP 16; TEMP 36.2; O2SAT 99; BMI 23.5
--- NOTE | 2024-03-05 12:44 | EX.ED.DYSGE1 ---
HPI History of Present Illness Chief Complaint: Abd Pain [facility] Medical History Occult blood positive stool Hematuria Elevated serum creatinine Fall Anemia Right bundle branch block (RBBB) Essential (primary) hypertension Leg cramps Hearing deficit Liver mass Prostate cancer Liver cyst Bladder outlet obstruction GERD (gastroesophageal reflux disease) Home Medications ?Medication ?Instructions ?Recorded ?Last Taken ?Type aspirin 325 mg tablet,delayed 325 mg PO DAILY BLOOD THINNER 03/26/17 07/10/18 History release amlodipine 5 mg tablet 10 mg (2 x 5 mg) PO DAILY #90 tabs 12/20/20 Unknown Rx lisinopril 40 mg tablet 40 mg PO DAILY BP 12/20/20 Unknown History Handicap Placard #1 ea 12/06/21 Unknown Rx enzalutamide 40 mg tablet (Xtandi) 160 mg PO DAILY 05/07/23 Unknown History magnesium 250 mg tablet 250 mg PO DAILY 10/22/23 Unknown History ruxolitinib 5 mg tablet (Jakafi) 10 mg PO BID 03/05/24 Unknown History Allergy/AdvReac Type Severity Reaction Status Date / Time No Known Allergies Allergy Verified 03/05/24 12:04 Family History Mother Heart disease Surgical History Status post cryotherapy of skin lesion H/O transurethral resection of prostate H/O vasectomy Social History Smoking Status: Former smoker second hand exposure: No alcohol intake: never substance use type: does not use caffeine: No beverley/episcopal: Bahai seatbelt use: always do you feel safe at home: Yes EXAM Physical Exam Const Vital Signs: 03/05/24 12:04 Temperature 97.1 F L Temperature Source Temporal Pulse Rate 74 Respiratory Rate 16 Blood Pressure 162/67 H Blood Pressure Mean 98 Pulse Ox 99 Oxygen Delivery Method Room Air MDM MDM MDM Narrative Medical decision making narrative: HISTORY OF PRESENT ILLNESS: 88-year-old male presents with left side abdominal pain that radiates to the side for approximately 2 weeks. Notes a rash about 2 days ago that is red, has little blisters. Does not remember a history of chickenpox. REVIEW OF SYSTEMS: Pertinent positives: Left flank pain, rash Pertinent negatives: Vomiting, constipation, diarrhea, chest pain, shortness of breath PHYSICAL EXAM: Nursing triage notes reviewed, Vital signs reviewed Constitutional: please see mdm HENT: MMM Eyes: Pupils equal round and reactive to light, Extraocular muscles intact Neck: No stridor, no JVD, full neck ROM Lungs: Clear to auscultation, No wheezing or rales. No increased work of breathing, no conversational dyspnea, no accessory muscle use, no nasal flaring. No respiratory distress noted Heart: Regular rate and rhythm, No murmurs, No rubs and No gallops, 2+ distal pulses (radial, femoral, posterior tibial) in all extremities Abdomen: Soft, there is no tenderness, rigidity, rebound or guarding, no obvious peritoneal signs, no palpable pulsatile abdominal masses, no auscultated abdominal bruit : No CVAT Extremities: No edema Neuro: No focal neurological deficits, cranial nerves II through XII intact, 5/5 strength in all extremities. Intact sensation to light touch in all extremities, 2+ reflexes bilateral patella tendons. Normal gait. No ataxia. Skin: No rash or lesions noted MEDICAL DECISION MAKING: Chief Complaint: [Abdominal pain External records reviewed: Imaging reviewed: CT scan from 2019 reviewed shows thickening of the wall of urinary bladder which may be due to incomplete distention or cystitis Factors affecting care: GERD, liver cyst, prostate cancer, liver mass, hypertension Social determinants of health: Elderly patient History obtained from others: Patient's family Consults: none [facility] Narrative: Patient's blood pressure was initially elevated 162/67 otherwise afebrile nontoxic-appearing. Exam consistent with shingles. Will give valacyclovir here in the emergency department and for home-going for Days r. Will give strict return precautions for secondary bacterial infection The patient and/or family, caregivers express understanding. The patient and/or family, caregivers agrees with the plan. Shared decision making: I will have a discussion with the patient and or visitors regarding risk/benefits of further testing or admission. They will be made aware of of the risk/benefits inherent in this decision they will be given the opportunity to voice understanding. Total critical care time today provided was at least 0 minutes. This excludes separately billable procedures. Critical care time (if documented) is secondary to the patient having high probability of clinically significant/life threatening deterioration in the patient's condition which required my urgent intervention. Impression: 1. Shingles 2. Rash Dispo: Discharge home This note was generated with [employer]PD[employer] dictation software. It may contain incorrect words, spelling, and punctuation that were not noted in review of the chart prior to signing. Discharge Plan Triage Chief Complaint: Abd Pain ED Provider: Collins Arcos Dx/Rx/DC Orders Prescriptions: No Action lisinopril 40 mg tablet 40 mg PO DAILY Patient Comments: blood pressure amlodipine 5 mg tablet 10 mg PO DAILY Qty: 90 3RF (DME) Handicap Placard See Rx Instructions .Route .MEDSUPPLY Qty: 1 0RF Rx Instructions: Expires 12/06/22 Xtandi 40 mg tablet 160 mg PO DAILY magnesium 250 mg tablet 250 mg PO DAILY aspirin 325 MG tablet,delayed release (DR/EC) 325 mg PO DAILY Patient Comments: WAS TOLD TO STOP 7 DAYS PRE OP Jakafi 5 mg tablet 10 mg PO BID Primary Care Provider: Valentino Barroso Referrals: Valentino Barroso DO [Primary Care Provider] - Print Language: Dominican
[2024-03-05] MEDS: Acyclovir 800 MG Tablet PO (13:16)
[2024-03-05 13:20] VITALS: BP 144/61; PULSE 71; RESP 16; TEMP 36.6; O2SAT 99
== END 2024-03-05 13:24 | disposition home or self-care (01) ==
LOC: ED 13:16
PROVIDERS: Emergency Provider Emergency Medicine; PCP Family Medicine; Visit Provider Emergency Medicine
DX: B02.9 Zoster without complications (principal); C61 Malignant neoplasm of prostate; K21.9 Gastro-esophageal reflux disease without esophagitis; I10 Essential (primary) hypertension; K76.89 Other specified diseases of liver; Z87.891 Personal history of nicotine dependence; R16.0 Hepatomegaly, not elsewhere classified; R21 Rash and other nonspecific skin eruption
CPT/HCPCS: 99283

== ENCOUNTER → 2024-07-19 | Outpatient (CLI) | payer MEDICARE, SELFPAY ==
[2024-07-19 13:52] LABS: PSA,Total- Diagnostic 0.29 ng/mL (0.0-4.0)
== END | disposition home or self-care (01) ==
LOC: PAVLAB 13:06
PROVIDERS: PCP Family Medicine; Referring Provider Urology; Visit Provider Urology
DX: C61 Malignant neoplasm of prostate (principal)
CPT/HCPCS: 36415; 84153

== ENCOUNTER → 2024-08-11 | Outpatient (CLI) | payer MEDICARE, SELFPAY ==
--- NOTE | 2024-08-11 11:21 | US_ITS ---
STUDY: THYROID ULTRASOUND REASON FOR EXAM: Male, 89 years old. THYROID NODULE TECHNIQUE: Ultrasound evaluation of the thyroid was performed with real-time and static otero-scale imaging. COMPARISON: January 01, 2023. FINDINGS: RIGHT LOBE: The right lobe of the thyroid gland measures 4.5 x 2.2 x 1.4 cm. There is a homogeneous echotexture. 0.7 x 0.5 x 0.7 cm isoechoic nodule lower pole. Margins are irregular. Nodular vascularization. LEFT LOBE: The left lobe of the thyroid gland measures 4 x 1.6 x 1.3 cm cm. There is a homogeneous echotexture. There are no demonstrated solid, cystic or complex lesions. ISTHMUS: The isthmus measures 5 mm. Hyperechoic nodule in the isthmus measures 0.4 x 0.7 x 0.3 cm.. The regional lymph nodes are normal. US/Thyroid IMPRESSION: Interval decrease in size of previously noted nodules. Electronically Signed: Regan Núñez MD at 16:34 EST ,
== END | disposition home or self-care (01) ==
LOC: US 11:20
PROVIDERS: PCP Family Medicine; Referring Provider Internal Medicine Medical Oncology; Visit Provider Internal Medicine Medical Oncology
DX: E04.1 Nontoxic single thyroid nodule (principal)
CPT/HCPCS: 76536

== ENCOUNTER → 2024-12-23 | Outpatient (CLI) | payer MEDICARE, SELFPAY ==
[2024-12-23 14:14] LABS: Absolute Neutrophil Count 11.1 X10^3/uL (2.0-7.7); Basophil# 0.09 X10^3/uL; Basophil% 0.6 % (0-1); Eosinophil# 0.22 X10^3/uL; Eosinophils% 1.5 % (0-5); Hemoglobin 12.4 g/dL (13.0-16.5); Immature Platelet Fraction 3.9 % (1.0-7.9); Lymphocyte % 10.5 % (19-41); Mean Corpuscular Hgb 30.8 pg (27.0-32.0); Mean Corpuscular Volume 99.3 fL (80-94); Mean Platelet Vol. 10.2 fl (6.2-12.0); Monocyte# 1.17 X10^3/uL; Monocyte% 8.2 % (0-10); NRBC Flagged by Analyzer 0.1 % (0-5); Neutrophil # 11.13 X10^3/uL (2.7-7.7); POSITIVE MORPHOLOGY YES; Platelet Count 568 K/mm3 (150-450); RBC Distribution Width CV 17.2 % (11.6-14.6); RBC Distribution Width SD 62.7 fl (35.1-43.9); RET-HE 26.2 pg (30-35); Red Blood Count 4.03 M/mm3 (4.6-6.2); Reticulocyte Count 3.54 % (0.5-1.5); White Blood Count 14.3 K/mm3 (4.4-11.0)
[2024-12-23 14:40] LABS: Ferritin 45 ng/mL (37-417); Iron 43 ug/dL (65-175)
[2024-12-23 14:53] LABS: Platelet Morphology LARGE
[2024-12-23 14:55] LABS: Differential Indicated SCAN CRITERIA MET
[2024-12-25 04:07] LABS: Transferrin 292 mg/dL (149-313)
== END | disposition home or self-care (01) ==
PROVIDERS: PCP Family Medicine; Referring Provider Internal Medicine Gastroenterology; Visit Provider Internal Medicine Gastroenterology
DX: D64.9 Anemia, unspecified (principal); D45 Polycythemia vera
CPT/HCPCS: 36415; 82728; 83540; 84466; 85025; 85045

== ENCOUNTER 2025-01-12 10:31 | Day surgery (SDC) | payer MEDICARE, SELFPAY ==
--- NOTE | 2025-01-07 15:07 | PAT.ANESEVAL ---
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 When Was Last Pacemaker Check QUESTION #4 FULL TEXT: You/Your Family Experience fever (hyperthermia) with Anesthesia Last Oral Intake Last Oral intake: Last Oral Intake NPO since Meds taken in AM with sips of water? Meds patient instructed to take am of surgery PONV PONV - utility bag assembler: PONV - utility bag assembler Female No 01/07/25 13:55 HX of Motion Sickness No 01/07/25 13:55 HX of N/V After Surgery No 01/07/25 13:55 Non-Smoker Yes 01/07/25 13:55 Duration of Surgery greater No 01/07/25 13:55 than 60 minutes Number of Risk Factors 1 01/07/25 13:55 PONV Score Low Risk 01/07/25 13:55 Height & Weight Height & Weight: Anesthesia: Height & Weight Height 6 ft 1 in 12/02/24 14:57 Respiratory Assessment Respiratory Assessment - utility bag assembler: Respiratory Tract Infection Hx - utility bag assembler Hx Respiratory Tract Infection No 01/07/25 13:55 STOP Sleep Apnea STOP Sleep Apnea - utility bag assembler: STOP Sleep Apnea - utility bag assembler Hx Hypertension Yes: PER PT, CONTROLLED ON 01/07/25 13:55 MEDS Hx Sleep Apnea No 01/07/25 13:55 CPAP No 01/07/25 13:55 BIPAP No 01/07/25 13:55 Do you snore loudly (louder No 01/07/25 13:55 than talking or can be heard Do you often feel tired/ No 01/07/25 13:55 fatigued/ sleepy during daytime? Has anyone observed you stop No 01/07/25 13:55 breathing during sleep? STOP Results Negative 01/07/25 13:55 QUESTION #5 FULL TEXT : Do you snore loudly (louder than talking or can be heard through closed doors)? 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 Specify any problems Hx of Preganancy in last 3 N/A 01/07/25 13:55 Months Nurse Filling Out Transfusion TEJAS 01/07/25 13:55 & Questions: Date: 01/07/25 01/07/25 13:55 Time: 13:58 01/07/25 13:55 Patient unable to answer at this time (ie. confused, unrespo /Reproduction History /Reproductive History - utility bag assembler: /Reproductive Hx- utility bag assembler Hx Now Gestational Age (in weeks): EDC: Hx Hx Para Hx Section SAB PFSH Medical History (Updated 01/07/25 @ 14:58 by Brandi Kennedy) Wears hearing aid Wears dentures Cancer Restless legs Heartburn Former smoker History of echocardiogram Cardiology follow-up encounter Occult blood positive stool Hematuria Elevated serum creatinine Fall Anemia Right bundle branch block (RBBB) Essential (primary) hypertension Leg cramps Hearing deficit Liver mass Prostate cancer Liver cyst Bladder outlet obstruction GERD (gastroesophageal reflux disease) Home Medications ?Medication ?Instructions ?Recorded ?Last Taken ?Type aspirin 325 mg tablet,delayed 325 mg PO DAILY BLOOD THINNER 03/26/17 07/10/18 History release Held on 01/07/25. Instructions: Ordered amlodipine 5 mg tablet 10 mg (2 x 5 mg) PO DAILY #90 tabs 12/20/20 Unknown Rx lisinopril 40 mg tablet 40 mg PO DAILY BP 12/20/20 Unknown History Handicap Placard #1 ea 12/06/21 Unknown Rx magnesium 250 mg tablet 250 mg PO QHS 10/22/23 Unknown History ruxolitinib 5 mg tablet (Jakafi) 10 mg (2 x 5 mg) PO BID #60 tabs 09/10/24 Unknown Rx Held on 01/07/25. Instructions: MD Ordered enzalutamide 40 mg tablet (Xtandi) 80 mg PO DAILY 11/04/24 Unknown History Allergy/AdvReac Type Severity Reaction Status Date / Time No Known Allergies Allergy Verified 01/07/25 13:51 Family History Mother Heart disease Surgical History Status post cryotherapy of skin lesion H/O transurethral resection of prostate H/O vasectomy Social History Smoking Status: Former smoker second hand exposure: No alcohol intake: never substance use type: does not use caffeine: No beverley/alevism: Caodaism seatbelt use: always do you feel safe at home: Yes Audit: Pertinent Findings Pertinent Findings EKG Perinent findings: 07/17/2022. Normal sinus rhythm 82 bpm. Right bundle branch block. Echo (EF%) pertinent findings: 12/29/2020. EF 65%. Consult pertinent findings: Cardiology 12/20/2020. Hypertension. Add amlodipinE 5 mg a day to regimen. Right bundle branch block. Chronic. Continue to monitor. Recommendation Anesthesia Recommendation Anesthesia recommendation: OPTIMIZED for anesthesia
[2025-01-12] VITALS (7 sets, daily range): BP systolic 111–137; BP diastolic 60–73; PULSE 66–76; RESP 16–18; TEMP 36.1–36.2; O2SAT 98–100; BMI 22.9
--- NOTE | 2025-01-12 10:41 | PCM.PRE.AN2 ---
ASA Classification* ASA Classification ASA Classification: 2 Assessment & Plan Anesthesia* Anesthesia Assessment Anesthesia Assessment: Discussed sedation and/or anesthesia options, risks, benefits, and alternatives with patient/parents/legal guardian/POA. Questions invited. The patient/parents/legal guardian/POA seems to understand and agrees to proceed with anesthesia plan. Reviewed the physical assessment, medical history, allergy history and patient home medications list prior to surgery/procedure/anesthetic and documented any changes. Performed airway and anesthesia risk assessments. Anesthesia Type Anesthesia Type: MAC Anesthesia Focused Assessment* Airway Assessment Mouth opens: >3 cm Mallampati Score: II Labs Anesthesia Preop lab: CBC WBC 14.3 K/mm3 (4.4-11.0) H 12/23/24 14:01 12/23/24 RBC 4.03 M/mm3 (4.6-6.2) L 12/23/24 14:01 12/23/24 Hgb 12.4 g/dL (13.0-16.5) L 12/23/24 14:01 12/23/24 Hct 40.0 % (40-54) 12/23/24 14:01 12/23/24 Plt Count 568 K/mm3 (150-450) H 12/23/24 14:01 12/23/24 CHEMISTRY Potassium 5.1 mmol/L (3.3-5.1) 12/02/24 11:36 12/02/24 Sodium 136 mmol/L (133-145) 12/02/24 11:36 12/02/24 Magnesium 2.5 mg/dL (1.6-2.6) 05/04/22 04:15 05/04/22 BUN 32 mg/dL (4-19) H 12/02/24 11:36 12/02/24 Creatinine 1.68 mg/dL (0.70-1.20) H 12/02/24 11:36 12/02/24 Glucose 98 mg/dL (70-99) 12/02/24 11:36 12/02/24 POC Glucose 89 mg/dL (70-110) 07/28/14 06:56 07/28/14 TSH 2.66 uIU/mL (0.358-3.74) 01/15/23 12:34 01/15/23 COAG Pre-Assessment Diagnosis/Proposed Procedure Planned Operative Procedure(s): EGD Anesthesia History 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 When Was Last Pacemaker Check QUESTION #4 FULL TEXT: You/Your Family Experience fever (hyperthermia) with Anesthesia Last Oral Intake Last Oral intake: Last Oral Intake NPO since Meds taken in AM with sips of water? 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 - implementation engineer Female No 01/07/25 13:55 HX of Motion Sickness No 01/07/25 13:55 HX of N/V After Surgery No 01/07/25 13:55 Non-Smoker Yes 01/07/25 13:55 Duration of Surgery greater No 01/07/25 13:55 than 60 minutes Number of Risk Factors 1 01/07/25 13:55 PONV Score Low Risk 01/07/25 13:55 Height & Weight Height & Weight: Anesthesia: Height & Weight Height 6 ft 1 in 12/02/24 14:57 Respiratory Assessment Respiratory Assessment - implementation engineer: Respiratory Tract Infection Hx - implementation engineer Hx Respiratory Tract Infection No 01/07/25 13:55 STOP Sleep Apnea STOP Sleep Apnea - implementation engineer: STOP Sleep Apnea - implementation engineer Hx Hypertension Yes: PER PT, CONTROLLED ON 01/07/25 13:55 MEDS Hx Sleep Apnea No 01/07/25 13:55 CPAP No 01/07/25 13:55 BIPAP No 01/07/25 13:55 Do you snore loudly (louder No 01/07/25 13:55 than talking or can be heard Do you often feel tired/ No 01/07/25 13:55 fatigued/ sleepy during daytime? Has anyone observed you stop No 01/07/25 13:55 breathing during sleep? STOP Results Negative 01/07/25 13:55 QUESTION #5 FULL TEXT : Do you snore loudly (louder than talking or can be heard through closed doors)? 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 Specify any problems Hx of Preganancy in last 3 N/A 01/07/25 13:55 Months Nurse Filling Out Transfusion MGRIFFITH 01/07/25 13:55 & Questions: Date: 01/07/25 01/07/25 13:55 Time: 13:58 01/07/25 13:55 Patient unable to answer at this time (ie. confused, unrespo /Reproduction History /Reproductive History - implementation engineer: /Reproductive Hx- implementation engineer Hx Now Gestational Age (in weeks): EDC: Hx Hx Para Hx Section SAB PFSH Medical History Wears hearing aid Wears dentures Cancer Restless legs Heartburn Former smoker History of echocardiogram Cardiology follow-up encounter Occult blood positive stool Hematuria Elevated serum creatinine Fall Anemia Right bundle branch block (RBBB) Essential (primary) hypertension Leg cramps Hearing deficit Liver mass Prostate cancer Liver cyst Bladder outlet obstruction GERD (gastroesophageal reflux disease) Home Medications ?Medication ?Instructions ?Recorded ?Last Taken ?Type aspirin 325 mg tablet,delayed 325 mg PO DAILY BLOOD THINNER 03/26/17 07/10/18 History release Held on 01/07/25. Instructions: Ordered amlodipine 5 mg tablet 10 mg (2 x 5 mg) PO DAILY #90 tabs 12/20/20 Unknown Rx lisinopril 40 mg tablet 40 mg PO DAILY BP 12/20/20 Unknown History Handicap Placard #1 ea 12/06/21 Unknown Rx magnesium 250 mg tablet 250 mg PO QHS 10/22/23 Unknown History ruxolitinib 5 mg tablet (Jakafi) 10 mg (2 x 5 mg) PO BID #60 tabs 09/10/24 Unknown Rx Held on 01/07/25. Instructions: MD Ordered enzalutamide 40 mg tablet (Xtandi) 80 mg PO DAILY 11/04/24 Unknown History Allergy/AdvReac Type Severity Reaction Status Date / Time No Known Allergies Allergy Verified 01/07/25 13:51 Family History Mother Heart disease Surgical History Status post cryotherapy of skin lesion H/O transurethral resection of prostate H/O vasectomy Social History Smoking Status: Former smoker second hand exposure: No alcohol intake: never substance use type: does not use caffeine: No beverley/nondenominational: Restorationism seatbelt use: always do you feel safe at home: Yes Review of Systems (Anesthesia) ROS Narrative System reviewed and no additional complaints, except as documented.
[2025-01-12] MEDS: Lactated Ringers 1,000 ML 15 ML IV (11:17)
--- NOTE | 2025-01-12 11:30 | EGD_PTH ---
PATIENT: ZULEIMA ARCE LOC: EN U#:[id number] AGE/SX: 89/M ROOM: RE01/12/[address]: Dr. Adair Bashir DO : 1935 BED: DIS: 01/12/2025 SPEC #: [id number] RECD: 01/12/25 14:38 STATUS: RENUKA GIOVANA #: [id number] WILLARD: 01/12/25 11:[address]: Adair Bashir DEPT: SURGICAL PATHOLOGY RECD BY: Caden Hill ENTERED: 01/12/25 15:35 SP TYPE: EGD BIOPSY DELICIA DR: Dr. Valentino Barroso DO Tissues: A - Duodenum, NOS Procedures: Surgery Specimen Level IV HEADER OPERATION: EGD with biopsy PRE-OP DIAGNOSIS: Anemia TISSUE SUBMITTED: A- Duodenum biopsy MICROSCOPIC DIAGNOSIS A. 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 If celiac disease is a clinical consideration, additional laboratory testing may be warranted. MICROSCOPIC DESCRIPTION Slides are reviewed. GROSS DESCRIPTION A. Received in formalin labeled with the patient's name and date of . Designated as duodenum are 4 hazel tissue fragments, <0.1 cm to 0.4 cm. Entirely submitted in 1 cassette. Smallest fragments may not survive processing. [facility] [place] CPT:17456
--- NOTE | 2025-01-12 11:31 | PCM.HP.STD ---
HPI - General General Date of Admission: 01/12/25 Date of Service: 01/12/25 Chief Complaint: Anemia HPI Narrative ZULEIMA ARCE, is a 89 M who presents for evaluation of anemia. *[facility] established 5.. with referral from Dr Mujica for fecal abnormalities and anemia. Pt reports that he has not noticed blood in his stool; reports constipation. Pt reports he has never had a colonoscopy; has done cologard tests. Pt's daughter reports that pt's Jakafi is currently on hold. [facility] Medical History Wears hearing aid Wears dentures Cancer Restless legs Heartburn Former smoker History of echocardiogram Cardiology follow-up encounter Occult blood positive stool Hematuria Elevated serum creatinine Fall Anemia Right bundle branch block (RBBB) Essential (primary) hypertension Leg cramps Hearing deficit Liver mass Prostate cancer Liver cyst Bladder outlet obstruction GERD (gastroesophageal reflux disease) Home Medications ?Medication ?Instructions ?Recorded ?Last Taken ?Type aspirin 325 mg tablet,delayed 325 mg PO DAILY BLOOD THINNER 03/26/17 12/23/24 History release Held on 01/07/25. Instructions: Ordered amlodipine 5 mg tablet 10 mg (2 x 5 mg) PO DAILY #90 tabs 12/20/20 01/11/25 Rx lisinopril 40 mg tablet 40 mg PO DAILY BP 12/20/20 01/11/25 History Handicap Placard #1 ea 12/06/21 Unknown Rx magnesium 250 mg tablet 250 mg PO QHS 10/22/23 01/11/25 History ruxolitinib 5 mg tablet (Jakafi) 10 mg (2 x 5 mg) PO BID #60 tabs 09/10/24 Unknown Rx Held on 01/07/25. Instructions: Ordered enzalutamide 40 mg tablet (Xtandi) 80 mg PO DAILY 11/04/24 01/11/25 History Allergy/AdvReac Type Severity Reaction Status Date / Time No Known Allergies Allergy Verified 01/07/25 13:51 Family History Mother Heart disease Surgical History Status post cryotherapy of skin lesion H/O transurethral resection of prostate H/O vasectomy Social History Smoking Status: Former smoker second hand exposure: No alcohol intake: never substance use type: does not use caffeine: No beverley/temple: [employer] seatbelt use: always do you feel safe at home: Yes ROS Constitutional Constitutional: Denies fatigue, fever(s), poor appetite, weight gain or weight loss Gastrointestinal Gastrointestinal: Denies belching, bloating, change in bowel habits, change in stool character, chewing difficulty, coffee ground emesis, constipation, cramping, diarrhea, dyspepsia, dysphagia, early satiety, excessive flatus, fecal incontinence, heartburn, hematemesis, hematochezia, hemorrhoids, loose stools, melena, nausea, odynophagia, rectal bleeding, tenesmus, vomiting or weight changes Vital Signs Vital Signs Vital Signs: 01/12/25 11:03 01/12/25 11:03 Temperature 97.1 F L Temperature Source Temporal Pulse Rate 76 Respiratory Rate 18 Respiratory Pattern Normal Blood Pressure 137/73 H Blood Pressure Mean 94 Blood Pressure Source Monitor Blood Pressure Position Semi-Fowlers Blood Pressure Location Right Arm Pulse Ox 99 Oxygen Delivery Method Room Air Weight Weight: 174 lb 2.643 oz Body Mass Index (BMI) 22.9 Physical Exam Const alert, oriented x3 and no apparent distress Constitutional Narrative: hearing impaired Assessment & Plan Assessment/Plan (1) Anemia: QUALIFIERS: Anemia type: unspecified type Qualified Code(s): D64.9 - Anemia, unspecified PLAN: Mental Status: mental status grossly normal Assessment and Plan Assessment and Plan (1) Polycythemia vera: Status: Chronic Comment: Started Jakafi in April 2022. Off since April 2024 because of anemia. Comes for follow up. Hgb is above 10. (2) Anemia: Status: Resolved Qualifiers: Anemia type: unspecified type Qualified Code(s): D64.9 - Anemia, unspecified (3) Occult blood positive stool: Status: Acute Plan: 89 year-old man presents for evaluation of anemia and fecal occult positive stools. 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 He is on 325 mg ASA and Jakafi 10mg bid. He developed Hgb of 10 so Jakafi was decreased to 10mg daily. Stool guaiac was positive so was referred to Surgery for Endoscopy but decided not to go for the appointment. He was put back on Jakafi 10mg bid. Patient is presenting to clinic today accompanied by adult grand daughter. Jakafi and ASA were held on 04/26/24 to address Hgb 9.5. Stool was negative for occult blood. Iron studies did not identify any deficiency. He specifically denies any episodes of overt bleeding or abnormal bruising including melena hematochezia dark tarry stools. Admits he does bruise easily. Currently his hemoglobin is 10.1 and his stool is now positive for blood. His family member says that he does not think he can prep for colonoscopy but he is well to have a upper endoscopy. Orders: Orders CBC W/Diff, Automated Today D45 - Polycythemia vera, D64.9 - Anemia, unspecified Ferritin Today D45 - Polycythemia vera, D64.9 - Anemia, unspecified Iron Today D45 - Polycythemia vera, D64.9 - Anemia, unspecified Retic Panel Count Today D45 - Polycythemia vera, D64.9 - Anemia, unspecified Transferrin Today D45 - Polycythemia vera, D64.9 - Anemia, unspecified Abdomen/Pelvis WITH Contrast Today D45 - Polycythemia vera, D64.9 - Anemia, unspecified, R19.5 - Other fecal abnormalities
--- NOTE | 2025-01-12 12:37 | OP.EGD_ITS ---
Patient Name: Darian Panda Procedure Date: 01/12/2025 12:03 PM Date of : 1935 Age: 89 Procedure: Upper GI endoscopy Indications: Acute post hemorrhagic anemia, Iron deficiency anemia secondary to chronic blood loss, Occult blood in stool, Recent gastrointestinal bleeding, Suspected upper gastrointestinal bleeding in patient with chronic blood loss Providers: Adair Bashir DO Referring MD: Valentino Barroso Medicines: Monitored Anesthesia Care Patient Profile: This is an 89 year old male. Refer to note in patient chart for documentation of history and physical. Patient has symptoms. Complications: No immediate complications. Procedure: Pre-Anesthesia Assessment: - Prior to the procedure, a History and Physical was performed, and patient medications and allergies were reviewed. The patient is competent. The risks and benefits of the procedure and the sedation options and risks were discussed with the patient. All questions were answered and informed consent was obtained. Patient identification and proposed procedure were verified by the physician in the pre-procedure area. Mental Status Examination: alert and oriented. Airway Examination: normal oropharyngeal airway and neck mobility. Respiratory Examination: clear to auscultation. CV Examination: normal. Prophylactic Antibiotics: The patient does not require prophylactic antibiotics. Prior Anticoagulants: The patient has taken no anticoagulant or antiplatelet agents except for NSAID medication. ASA Grade Assessment: II - A patient with mild systemic disease. After reviewing the risks and benefits, the patient was deemed in satisfactory condition to undergo the procedure. The anesthesia plan was to use monitored anesthesia care (MAC). Immediately prior to administration of medications, the patient was re-assessed for adequacy to receive sedatives. The heart rate, respiratory rate, oxygen saturations, blood pressure, adequacy of pulmonary ventilation, and response to care were monitored throughout the procedure. The physical status of the patient was re-assessed after the procedure. After obtaining informed consent, the endoscope was passed under direct vision. Throughout the procedure, the patient's blood pressure, pulse, and oxygen saturations were monitored continuously. The Endoscope was introduced through the mouth, and advanced to the third part of the duodenum. Small bowel enteroscopy was deemed necessary. The upper GI endoscopy was accomplished without difficulty. The patient tolerated the procedure well. Scope In: 12:19:50 PM Scope Out: 12:23:04 PM Total Procedure Duration Time 0 hours 3 minutes 14 seconds Findings: The examined esophagus was normal. No gross lesions were noted in the entire examined stomach. Patchy mildly erythematous mucosa without active bleeding and with no stigmata of bleeding was found in the entire duodenum. Biopsies were taken with a cold forceps for histology. Verification of patient identification for the specimen was done. Estimated blood loss was minimal. Impression: - Normal esophagus. - No gross lesions in the entire stomach. - Erythematous duodenopathy. Biopsied. Recommendation: - Discharge patient to home. - Resume previous diet. - Continue present medications. - Await pathology results. Procedure Code(s): --- Professional --- 39709, Small intestinal endoscopy, enteroscopy beyond second portion of duodenum, not including ileum; with biopsy, single or multiple CPT copyright 2021 [employer]. All rights reserved. The codes documented in this report are preliminary and upon real estate acquisition analyst review may be revised to meet current compliance requirements. Adair Bashir DO 01/12/2025 12:36:51 PM This report has been signed electronically. Number of Addenda: 0 Note Initiated On: 01/12/2025 12:03 PM
--- NOTE | 2025-01-12 12:37 | OP.CCLET_ITS ---
01/12/2025 Valentino Barroso [address] [facility] [place] [address] Re : Upper GI endoscopy procedure for Darian Panda Dear Dr. Barroso This procedure was performed on Sunday, January 12, 2025. My impressions and recommendations are as follows: Impressions : - Normal esophagus. - No gross lesions in the entire stomach. - Erythematous duodenopathy. Biopsied. Recommendations : - Discharge patient to home. - Resume previous diet. - Continue present medications. - Await pathology results. My findings are described in the full procedure note, which is enclosed. If I can be of further assistance, please feel free to contact me at . Sincerely, Adair Bashir, 01/12/2025 12:36:51 PM This report has been signed electronically.
--- NOTE | 2025-01-12 12:38 | PCM.POST.ANE ---
Anesthesia: Postop Eval I Current Vital Signs Temperature: 97 F Pulse Rate: 72 Blood Pressure: 114/60 Respiratory Rate: 16 Pulse Ox: 100 Oxygen Delivery Method: Room Air Assessment Airway patent: Yes Spontaneous unlabored respirations: Yes Mental status: Awake and Calm nausea: No Vomiting: No Anesthesia Complication: No Fluid Hydration Crystalloid volume administer (ml): 300 Total IV fluid infused: 300 Progress Note Anesthesia document: Postop Eval 1 completed: Yes
--- NOTE | 2025-01-12 13:54 | PCM.POSTANE2 ---
Anesthesia Postop Eval I Sum Postop Eval Completion status Anesthesia document: Postop Eval 1 completed: Yes Anesthesia Postop Eval I Summary Anesthesia Postop Eval I Summary: Anesthesia Postop Eval I: Assessment Summary Airway patent Yes 01/12/25 12:39 [email or web address] Spontaneous unlabored Yes 01/12/25 12:39 [email or web address] respirations Mental status Awake,Calm 01/12/25 12:39 [email or web address] nausea No 01/12/25 12:39 [email or web address] Vomiting No 01/12/25 12:39 [email or web address] Anesthesia Postop Eval I: Fluid Summary Crystalloid volume administer 300 01/12/25 12:39 [email or web address] (ml) Colloids volume administered ( ml) Blood Product volume administered (ml) Total IV fluid infused 300 01/12/25 12:39 [email or web address] Anesthesia Postop Eval I: Summary Notes Anesthesia Complication No 01/12/25 12:39 [email or web address] Anesthesia Complication Comment: Post-operative progress note Anesthesia: Postop Eval II Evaluation Mental status: Awake Pain Level: 0 nausea: No Vomiting: No
== END 2025-01-12 13:09 | disposition home or self-care (01) ==
LOC: EN 10:34 → AC 10:39
PROVIDERS: PCP Family Medicine; Referring Provider Family Medicine; Visit Provider Internal Medicine Gastroenterology
PROC: 0DJ08ZZ Inspection of Upper Intestinal Tract, Via Natural or Artificial Opening Endoscopic (ICD-10-PCS; CPT 43235; principal; 2025-01-12 11:25)
DX: K63.89 Other specified diseases of intestine (principal); D45 Polycythemia vera; R19.5 Other fecal abnormalities; Z87.891 Personal history of nicotine dependence; I10 Essential (primary) hypertension; K21.9 Gastro-esophageal reflux disease without esophagitis; Z79.899 Other long term (current) drug therapy; D50.0 Iron deficiency anemia secondary to blood loss (chronic)
CPT/HCPCS: 43239; 88305; J2405

== ENCOUNTER → 2025-01-19 | Outpatient (CLI) | payer MEDICARE, SELFPAY ==
--- NOTE | 2025-01-19 13:34 | CT_ITS ---
PROCEDURE: ABDOMEN/PELVIS WITH CONTRAST 01/19/2025 REASON FOR EXAM: ANEMIA TECHNIQUE: ABDOMEN/PELVIS WITH CONTRAST. Coronal and Sagittal reconstruction series were provided. ORAL CONTRAST TYPE: Patient ingested oral contrast. CONTRAST: Isovue-350. VOLUME: 100 mL One or more dose reduction techniques were used (e.g., Automated exposure control, adjustment of the mA and/or kV according to patient size, use of iterative reconstruction technique. RADIATION DOSE SUMMARY: CTDlvol: 11.62 mGy DLP: 638 mGycm COMPARISON: 09/02/2022. FINDINGS: Mild bilateral basilar atelectatic changes/infiltrates. Please evaluate to exclude superimposed pneumonia. Well-defined simple cyst in the segment 4 of the liver measuring 2.4 cm. Bilateral scattered simple renal cysts are noted with the largest measuring 5.4 cm on the left side. Well-defined 1.5 cm cyst in the pancreatic uncinate process. Moderate amount of fecal residue in the large bowels. Mild prostatomegaly. Scattered prostatic calcifications. Mild diffuse thickening of the bladder. Chronic bladder outlet obstruction versus mild cystitis. Bilateral fat containing inguinal hernias without incarceration. Moderate amount of fecal residue in the large bowels. Diffuse thickening of the stomach suggestive of gastritis. Normal gallbladder and extrahepatic biliary system. Normal spleen. Normal pancreas. Normal bilateral adrenal glands. Normal size of the right kidney. There is no right renal mass. There are no right renal calculi. There is no right hydronephrosis. Normal visualized right ureter. Normal size of the left kidney. There is no left renal mass. There are no left renal calculi. There is no left hydronephrosis. Normal visualized left ureter. Normal small intestine. The appendix is visualized and appears normal. There is no demonstrated peritoneal fluid. Mild atheromatous plaques of the abdominal aorta. Normal inferior vena cava. Normal retroperitoneum. There is no pelvic mass lesion or lymphadenopathy. There is no pelvic fluid. Fat containing umbilical hernia without incarceration. CT/Abdomen/Pelvis WITH Contrast IMPRESSION: Mild bilateral basilar atelectatic changes/infiltrates. Please evaluate to excl ude superimposed pneumonia. Well-defined simple cyst in the segment 4 of the liver measuring 2.4 cm. Bilateral scattered simple renal cysts are noted with the largest measuring 5.4 cm on the left side. Well-defined 1.5 cm cyst in the pancreatic uncinate process. Moderate amount of fecal residue in the large bowels. Mild prostatomegaly. Scattered prostatic calcifications. Mild diffuse thickening of the bladder. Chronic bladder outlet obstruction vers us mild cystitis. Bilateral fat containing inguinal hernias without incarceration. Moderate amount of fecal residue in the large bowels. Diffuse thickening of the stomach suggestive of gastritis. Reading [facility]
== END | disposition home or self-care (01) ==
PROVIDERS: PCP Family Medicine; Referring Provider Internal Medicine Gastroenterology; Visit Provider Internal Medicine Gastroenterology
DX: D45 Polycythemia vera (principal); D64.9 Anemia, unspecified; R19.5 Other fecal abnormalities
CPT/HCPCS: 74177; Q9967

== ENCOUNTER → 2025-05-09 | Outpatient (CLI) | payer MEDICARE, SELFPAY ==
[2025-05-09 13:21] LABS: PSA,Total- Diagnostic 0.10 ng/mL (0.00-4.00)
== END | disposition home or self-care (01) ==
LOC: LAB 11:53
PROVIDERS: PCP Family Medicine; Referring Provider Urology; Visit Provider Urology
DX: C61 Malignant neoplasm of prostate (principal); R97.20 Elevated prostate specific antigen [PSA]
CPT/HCPCS: 36415; 84153